=== PATIENT | female | born 1985 | race Caucasian/White ===

== ENCOUNTER 2024-06-14 12:53 | Outpatient (AMB) | payer MEDICAID, SELFPAY ==
[2024-06-14 13:01] VITALS: BP 116/62; PULSE 107; BMI 27.7
--- NOTE | 2024-06-14 13:01 | MHC.OFFVIS ---
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 It seems she has been referred from [facility] but we do not have any notes or any other information. No documented cardiac issues like coronary disease per patient. She has been getting some chest pains off and on. Can happen any time. Feels like a sharp pain/discomfort in the substernal area. She also gets some shortness of breath, off and on. Can happen any time. Lots of psychiatric issues including depression, PTSD extra. On a lot of psychiatric medications. [facility] Medical History (Updated 06/14/24 @ 14:10 by Fredrick John MD) Hemochromatosis Major depression Agoraphobia PTSD (post-traumatic stress disorder) TMJ (dislocation of temporomandibular joint) Acute anxiety Asthma Family History Mother No problems noted. Father No problems noted. Social History Alcohol intake: never Patient Tobacco Use Status: Former Tobacco user Review of Systems Const Denies weakness ENT Denies dizziness Card Reports chest pain, Denies chest pain with activity, Denies syncope, Denies rapid heart rate, Denies pedal edema, Denies edema, Denies leg edema, Denies lightheadedness, Reports palpitations, Reports dyspnea, Denies dyspnea on exertion and Denies orthopnea Resp Denies cough, Reports dyspnea and Denies dyspnea on exertion GI Denies hematochezia and Denies change in stool character Musc Denies abnormal gait, Denies muscle cramps, Denies muscle weakness, Denies numbness, Denies radiating pain into limb and Denies tingling Neuro Denies abnormal gait, Denies dizziness, Denies syncope, Denies numbness, Denies tingling and Denies weakness Endo Reports palpitations Physical Exam Vital Signs: Last Vital Signs Pulse 107 H 06/14/24 13:01 BP 116/62 06/14/24 13:01 BMI result Body Mass Index 27.7 Const General: comfortable and no acute distress Orientation/consciousness: patient oriented x3 HEENT Other: Unremarkable Head: Yes normal to inspection Neck Neck: Yes normal visual inspection Chest Chest palpation & inspection: normal inspection of the chest Resp Auscultation: clear to auscultation bilaterally Cardio Palpation: normal PMI Heart sounds: S1 normal heart sound present, S2 normal heart sound present, no gallops, no murmurs and no rubs GI Palpation (GI): Soft to palpation Back/Spine/Pelvis Other: unremarkable Skin General skin exam: no rashes or lesions noted Neuro General: patient oriented x3 Extrem General: Yes normal to inspection Psych Mental Status: mental status grossly normal Office Procedures EKG Details: EKG with mild sinus tachycardia at 107/Min; rightward axis; no significant ST-T changes; [place] [id number], Complete Assessment & Plan Assessment & Plan (1) Precordial chest pain: Code(s): R07.2 - Precordial pain Category: Medical (2) Shortness of breath: Code(s): R06.02 - Shortness of breath Category: Medical Plan Vague history of chest pain/shortness of breath but not very typical for cardiac. Considering her psychiatric history, would prefer to still clarify with certainty for any organic etiology. We will obtain an echocardiogram and coronary CTA for further evaluation. Follow-up after the above. Orders: Orders CA echo transthoracic complete Today R07.2 - Precordial pain CT Cardiac Coronary Angio Today I25.10 - Atherosclerotic heart disease of [place] coronary artery without angina pectoris, R07.2 - Precordial pain Basic Metabolic Panel Today R07.2 - Precordial pain Coding Level of Care Code New Pt Level 3 (60600) Diagnoses Precordial chest pain R07.2 Shortness of breath R06.02 CPT Codes EKG - CPT: 58996-[id number], Complete ([id number])
--- OUTSIDE RECORDS SUMMARY | 2024-06-20 02:13 | XMS_ITS | Continuity of Care Document ---
Author Organization [facility] Address [address] [place] [address] Phone Care Team Providers Care Chief Specialist Leed Name Role Phone ZProvider, Conversion Unavailable Unavailabl e Procedures Procedure Date X-RAY EXAM OF FOOT X-RAY EXAM OF HAND X-Ray Exam Sacroiliac Joints Advance Directives Directive Yes / No Effective Date File Name No Information Encounters Encounter Description Practice Location Reason(s) For Visit Diagnoses Date Provider Providers Copied on Encounter [facility], [address], [place], [place], [id number], tel:[phone] [facility] No Information ZProvider Conversion . . [facility], [address], [place], [place], [id number], tel:[phone] [facility] Spondylosis w/o myelopathy or radiculopathy, lumbar regionOther specified arthritis, multiple sitesTachycardia, unspecifiedDecrease d white blood cell count, unspecified ZProvider Conversion . . [facility], [address], [place], [place], [id number], tel:[phone] [facility] Anxiety disorder, unspecifiedPain in right hipOther specified arthritis, multiple sitesPain in left hipSpondylosis w/o myelopathy or radiculopathy, lumbar regionLong term (current) use of non-steroidal non-inflam (NSAID) ZProvider Conversion . . Family History Family Member Type Diagnosis Age At Onset Problem (finding) The patient re ports no changes except otherwise noted during the present visit Problem (finding) Diabetes Mellitus Type I Payers Payer name Insurance type Covered alliance party ID Abhishek preston(s) No Information Social History [...] No Information Instructions Date Instruction Additional Infor matshivani Reported lumbar DJD on Xray and MRI. Not currently followed by pain management. Will refer. Related to Spondylosis w/o myelopathy or radiculopathy, lumbar region Heart rate was 116 a nd was [...] Spondylosis w/o myelopathy or radiculopathy, lumbar region Will refer to hematology. Relate d to Decreased white blood cell count, unspecified Noted to be anxious on examination with heart rate 104. Patient reports situational anxiety. Advise follow up with PCP as needed. Related to Anxiety disorder, unspecified Will evaluate as above. Related to Pain in right hip Clinical evaluation does not support a rheumatic [...] in future if symptoms and signs change of address clerk time. Her white blood count and ANC are low. Will refer to Hematology for further evaluation. Patient was advised to bring a copy of her labs to her visit.Patient verbalized understanding and agreement with the plan. A copy of this report has been sent to the referring provider. Related to Other specified arthritis, multiple sites 31-year-old female w ith reported history of [...] Related to Other specified arthritis, multiple sites Advised minimizing NSAID use. 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
--- OUTSIDE RECORDS SUMMARY | 2024-06-20 02:13 | XMS_ITS | Continuity of Care Document ---
Author Organization [facility] Address [address] [place] [address] Phone Care Team Providers Care Real Estate Instructor Name Role Phone Gabino BHT CPSS, Jamey Unavailable Unavailabl e Allergies, Adverse Reactions, Alerts Substance Reaction Status Criticality No Known Allergies Active No Inform ation Medications Medication Instructions Dosage Effective Dates (start - stop) Status Comments lorazepam 1 mg tablet take 1 tablet by oral route 2 times every day - No Longer Active Strattera 100 mg capsule take 1 capsule by oral route every day in morning with food - No Longer Active Cymbalta 30 mg capsule,delayed release take 3 capsule by oral route every day with food andif drowsy take at bedtime - No Longer Active taper from 60 to 30mg Procedures Procedure Date 75 - CASE MGMT BY BHP IN OFFICE 017 URINE TEST Drug Screening 75 - CASE MGMT BY BHP IN OFFICE 017 BH EST PT 15 MIN 75 - CASE MGMT BY BHT IN OFFICE 017 75 - CASE MGMT BY BHP IN OFFICE 017 75 - CASE MGMT BY BHP IN OFFICE 017 H34H - Medication Training Home 017 INDIVIDUAL COUNSELING - IN HOME 017 75 - CASE MGMT BY BHP IN OFFICE 017 75 - CASE MGMT BY BHP IN OFFICE 017 75 - CASE MGMT BY BHP IN OFFICE 017 75 - CASE MGMT BY BHP IN OFFICE 017 75 - CASE MGMT BY BHP IN OFFICE 017 T1002 - RN SERVICES 75 - CASE MGMT BY BHP IN OFFICE 75 - CASE MGMT BY BHP IN OFFICE 75 - CASE MGMT BY BHT IN OFFICE 75 - CASE MGMT BY BHT IN OFFICE 75 - CASE MGMT BY BHT IN OFFICE 75 - CASE MGMT BY BHT IN OFFICE 75 - CASE MGMT BY BHT IN OFFICE 75 - CASE MGMT BY BHP IN OFFICE 75 - CASE MGMT BY BHP IN OFFICE 75 - CASE MGMT BY BHT IN OFFICE 017 BH EST PT 15 MIN 75 - CASE MGMT BY BHP IN OFFICE 017 75 - CASE MGMT BY BHP IN OFFICE 75 - CASE MGMT BY BHT IN OFFICE 017 T1002 - RN SERVICES 08 - INDIVIDUAL COUNSELING OFF SITE 75 - CASE MGMT BY BHP IN OFFICE 017 75 - CASE MGMT BY BHP IN OFFICE 75 - CASE MGMT BY BHT IN OFFICE 017 2014H - LIVING SKILLS TRAINING IND IN [facility] 74 - CASE MGMT BY BHT IN HOME 7 74 - CASE MGMT BY BHT IN HOME 7 74 - CASE MGMT BY BHT IN HOME 7 HPIH - HEALTH PROMTION HOME H34H - Medication Training [place] 017 75 - CASE MGMT BY BHP IN OFFICE 75 - CASE MGMT BY BHP IN OFFICE 75 - CASE MGMT BY BHP IN OFFICE 017 T1002 - RN SERVICES 75 - CASE MGMT BY BHP IN OFFICE 017 75 - CASE MGMT BY BHT IN OFFICE 017 75 - CASE MGMT BY BHT IN OFFICE 75 - CASE MGMT BY BHT IN OFFICE 017 74 - CASE MGMT BY BHT IN HOME 7 H34H - Medication Training Home 017 74 - CASE MGMT BY BHT IN HOME 7 75 - CASE MGMT BY BHT IN OFFICE 017 2014I - LIVING SKILLS TRAINING 17 75 - CASE MGMT BY BHT IN OFFICE 017 URINE TEST Drug Screening BH EST PT 40 MIN T1002 - RN SERVICES 75 - CASE MGMT BY BHT IN OFFICE 017 75 - CASE MGMT BY BHT IN OFFICE 017 75 - CASE MGMT BY BHP IN OFFICE Non-billable Service 75 - CASE MGMT BY BHT IN OFFICE 75 - CASE MGMT BY BHT IN OFFICE 75 - CASE MGMT BY BHT IN OFFICE 75 - CASE MGMT BY BHT IN OFFICE 75 - CASE MGMT BY BHT IN OFFICE 75 - CASE MGMT BY BHT IN OFFICE 75 - CASE MGMT BY BHT IN OFFICE 75 - CASE MGMT BY BHT IN OFFICE 75 - CASE MGMT BY BHT IN OFFICE 75 - CASE MGMT BY BHP IN OFFICE 017 75 - CASE MGMT BY BHP IN OFFICE 75 - CASE MGMT BY BHT IN OFFICE 75 - CASE MGMT BY BHT IN OFFICE Non-billable Service 75 - CASE MGMT BY BHP IN OFFICE 017 25 - BH PREVENTION/EDUCATION 75 - CASE MGMT BY BHT IN OFFICE 017 URINE TEST Drug Screening T1002 - RN SERVICES 25 - BH PREVENTION/EDUCATION Psychiatric Diagnostic Telemed 17 76 - CASE MGMT OUT OF OFFICE BHP 2016 75 - CASE MGMT BY BHT IN OFFICE 017 76 - CASE MGMT OUT OF OFFICE BHP 2016 75 - CASE MGMT BY BHT IN OFFICE 75 - CASE MGMT BY BHP IN OFFICE 75 - CASE MGMT BY BHP IN OFFICE Apr- Non-billable Service 75 - CASE MGMT BY BHP IN OFFICE Apr- 75 - CASE MGMT BY BHT IN OFFICE Apr- 75 - CASE MGMT BY BHP IN OFFICE Apr- 75 - CASE MGMT BY BHP IN OFFICE Apr- 75 - CASE MGMT BY BHT IN OFFICE Apr- 75 - CASE MGMT BY BHP IN OFFICE Apr- 75 - CASE MGMT BY BHT IN OFFICE Apr- 75 - CASE MGMT BY BHT IN OFFICE Apr- 75 - CASE MGMT BY BHT IN OFFICE 75 - CASE MGMT BY BHP IN OFFICE Apr- 76 - CASE MGMT BY BHT OUT OF OFFICE 75 - CASE MGMT BY BHP IN OFFICE Apr- 75 - CASE MGMT BY BHP IN OFFICE 75 - CASE MGMT BY BHP IN OFFICE Apr- 08 - INDIVIDUAL COUNSELING OFF SITE 75 - CASE MGMT BY BHP IN OFFICE 75 - CASE MGMT BY BHP IN OFFICE 75 - CASE MGMT BY BHP IN OFFICE URINE TEST Drug Screening 75 - CASE MGMT BY BHP IN OFFICE BH EST PT 15 MIN 2014I - LIVING SKILLS TRAINING 17 75 - CASE MGMT BY BHT IN OFFICE 75 - CASE MGMT BY BHT IN OFFICE 75 - CASE MGMT BY BHT IN OFFICE 75 - CASE MGMT BY BHP IN OFFICE BH EST PT 15 MIN 75 - CASE MGMT BY BHP IN OFFICE URINE TEST Drug Screening 75 - CASE MGMT BY BHT IN OFFICE 75 - CASE MGMT BY BHT IN OFFICE 75 - CASE MGMT BY BHT IN OFFICE 75 - CASE MGMT BY BHT IN OFFICE 75 - CASE MGMT BY BHT IN OFFICE 75 - CASE MGMT BY BHT IN OFFICE 75 - CASE MGMT BY BHT IN OFFICE 74 - CASE MGMT BY BHT IN HOME 7 75 - CASE MGMT BY BHT IN OFFICE 75 - CASE MGMT BY BHT IN OFFICE 75 - CASE MGMT BY BHT IN OFFICE 75 - CASE MGMT BY BHT IN OFFICE 75 - CASE MGMT BY BHT IN OFFICE 75 - CASE MGMT BY BHT IN OFFICE 75 - CASE MGMT BY BHT IN OFFICE 75 - CASE MGMT BY BHT IN OFFICE 75 - CASE MGMT BY BHT IN OFFICE [facility] SU[facility] IND [place] 75 - CASE MGMT BY BHT IN OFFICE 017 75 - CASE MGMT BY BHT IN OFFICE 75 - CASE MGMT BY BHT IN OFFICE 75 - CASE MGMT BY BHT IN OFFICE BH EST PT10 MIN 75 - CASE MGMT BY BHT IN OFFICE 75 - CASE MGMT BY BHT IN OFFICE 75 - CASE MGMT BY BHT IN OFFICE 75 - CASE MGMT BY BHT IN OFFICE 75 - CASE MGMT BY BHT IN OFFICE 75 - CASE MGMT BY BHT IN OFFICE 75 - CASE MGMT BY BHT IN OFFICE 75 - CASE MGMT BY BHT IN OFFICE 75 - CASE MGMT BY BHT IN OFFICE 017 75 - CASE MGMT BY BHT IN OFFICE 017 75 - CASE MGMT BY BHT IN OFFICE 017 [facility] - LIVING SKILLS TRAINING IND IN [facility] 74 - CASE MGMT BY BHT IN HOME 7 75 - CASE MGMT BY BHT IN OFFICE 017 05- INDIVIDUAL COUNSELING- OFFICE 75 - CASE MGMT BY BHP IN OFFICE 017 75 - CASE MGMT BY BHT IN OFFICE 017 74 - CASE MGMT BY BHT IN HOME 7 2013H - LIVING SKILLS TRAINING IND IN [facility] LODGING FACILITIES ATTENDANT UNIT BASE RATE LODGING FACILITIES ATTENDANT Per Mile Rate 74 - CASE MGMT BY BHT IN HOME 7 LODGING FACILITIES ATTENDANT UNIT BASE RATE LODGING FACILITIES ATTENDANT Per Mile Rate 2013H - LIVING SKILLS TRAINING IND IN [facility] 74 - CASE MGMT BY BHT IN HOME 7 74 - CASE MGMT BY BHT IN HOME 7 75 - CASE MGMT BY BHT IN OFFICE 017 25 - BH PREVENTION/EDUCATION BH EST PT 15 MIN 75 - CASE MGMT BY BHT IN OFFICE 017 URINE TEST Drug Screening 74 - CASE MGMT BY BHT IN HOME 7 75 - CASE MGMT BY BHT IN OFFICE 017 75 - CASE MGMT BY BHT IN OFFICE 017 INDIVIDUAL COUNSELING - IN HOME 017 74 - CASE MGMT BY BHT IN HOME 7 75 - CASE MGMT BY BHT IN OFFICE 017 75 - CASE MGMT BY BHT IN OFFICE 017 75 - CASE MGMT BY BHT IN OFFICE 017 T1002 - RN SERVICES 25 - BH PREVENTION/EDUCATION URINE TEST Drug Screening BH EST PT 15 MIN INDIVIDUAL COUNSELING - IN HOME 017 74 - CASE MGMT BY BHT IN HOME 7 74 - CASE MGMT BY BHT IN HOME 7 74 - CASE MGMT BY BHT IN HOME 7 INDIVIDUAL COUNSELING - IN HOME 017 74 - CASE MGMT BY BHT IN HOME 7 74 - CASE MGMT BY BHT IN HOME 7 2013H - LIVING SKILLS TRAINING IND IN [facility] 75 - CASE MGMT BY BHT IN OFFICE INDIVIDUAL COUNSELING - IN HOME 74 - CASE MGMT BY BHT IN HOME 7 INDIVIDUAL COUNSELING - IN HOME 017 74 - CASE MGMT BY BHT IN HOME 7 2013H - LIVING SKILLS TRAINING IND IN [facility] 75 - CASE MGMT BY BHT IN OFFICE 017 INDIVIDUAL COUNSELING - IN HOME 017 74 - CASE MGMT BY BHT IN HOME 7 75 - CASE MGMT BY BHT IN OFFICE 017 74 - CASE MGMT BY BHT IN HOME 7 INDIVIDUAL COUNSELING - IN HOME 74 - CASE MGMT BY BHT IN HOME 7 URINE TEST Drug Screening ASSAY OF BREATH ETHANOL BH EST PT 25 MIN 75 - CASE MGMT BY BHT IN OFFICE 017 T1002 - RN SERVICES 25 - BH PREVENTION/EDUCATION 75 - CASE MGMT BY BHP IN OFFICE 017 74 - CASE MGMT BY BHT IN HOME 7 - LIVING SKILLS TRAINING IND IN [facility] 76 - CASE MGMT BY BHT OUT OF OFFICE INDIVIDUAL COUNSELING - IN HOME 017 74 - CASE MGMT BY BHT IN HOME 7 75 - CASE MGMT BY BHT IN OFFICE 017 INDIVIDUAL COUNSELING - IN HOME 017 74 - CASE MGMT BY BHT IN HOME 7 74 - CASE MGMT BY BHT IN HOME 7 [facility] IND HOME INDIVIDUAL COUNSELING - IN HOME 017 74 - CASE MGMT BY BHT IN HOME 7 75 - CASE MGMT BY BHT IN OFFICE 017 75 - CASE MGMT BY BHT IN OFFICE 017 75 - CASE MGMT BY BHT IN OFFICE 017 75 - CASE MGMT BY BHT IN OFFICE 017 INDIVIDUAL COUNSELING - IN HOME 017 75 - CASE MGMT BY BHT IN OFFICE 017 74 - CASE MGMT BY BHT IN HOME 7 INDIVIDUAL COUNSELING - IN HOME 017 74 - CASE MGMT BY BHT IN HOME 7 2014H - LIVING SKILLS TRAINING IND IN [place] 75 - CASE MGMT BY BHT IN OFFICE 017 74 - CASE MGMT BY BHT IN HOME 7 PSI[facility] - PEER SUPPORT IND HOME 25 - BH PREVENTION/EDUCATION BH EST PT 25 MIN Drug Screening T1002 - RN SERVICES INDIVIDUAL COUNSELING - IN HOME 017 75 - CASE MGMT BY BHP IN OFFICE 017 75 - CASE MGMT BY BHP IN OFFICE 017 75 - CASE MGMT BY BHP IN OFFICE 017 75 - CASE MGMT BY BHP IN OFFICE 017 75 - CASE MGMT BY BHP IN OFFICE 017 BH EST PT10 MIN PSYCHOTHERAPY 30 MIN ADD-ON T1002 - RN SERVICES 25 - BH PREVENTION/EDUCATION 25 - BH PREVENTION/EDUCATION BH EST PT 25 MIN URINE TEST Drug Screening T1002 - RN SERVICES 25 - BH PREVENTION/EDUCATION 75 - CASE MGMT BY BHT IN OFFICE 016 BH EST PT 25 MIN 25 - BH PREVENTION/EDUCATION T1002 - RN SERVICES Est. Pt 25 Min Telemed 75 - CASE MGMT BY BHT IN OFFICE 016 T1002 - RN SERVICES 2013H - LIVING SKILLS TRAINING IND IN [place] INDIVIDUAL COUNSELING - IN HOME 016 PSIH - PEER SUPPORT IND HOME PSIH - PEER SUPPORT IND HOME INDIVIDUAL COUNSELING - IN HOME 016 75 - CASE MGMT BY BHT IN OFFICE 016 75 - CASE MGMT BY BHT IN OFFICE 016 BH EST PT 25 MIN T1002 - RN SERVICES URINE TEST Drug Screening T1002 - RN SERVICES 75 - CASE MGMT BY BHT IN OFFICE 016 75 - CASE MGMT BY BHT IN OFFICE 016 75 - CASE MGMT BY BHT IN OFFICE 016 H34H - Medication Training Home 016 PSIH - PEER SUPPORT IND HOME 74 - CASE MGMT BY BHT IN HOME 6 BH EST PT 40 MIN T1002 - RN SERVICES 25 - BH PREVENTION/EDUCATION URINE TEST Drug Screening 75 - CASE MGMT BY BHP IN OFFICE 016 75 - CASE MGMT BY BHT IN OFFICE 016 H34H - Medication Training Home 016 75 - CASE MGMT BY BHP IN OFFICE 016 H34H - Medication Training Home 016 LODGING FACILITIES ATTENDANT UNIT BASE RATE LODGING FACILITIES ATTENDANT Per Mile Rate 75 - CASE MGMT BY BHT IN OFFICE 016 2014H - LIVING SKILLS TRAINING IND IN [facility] 75 - CASE MGMT BY BHT IN OFFICE 016 75 - CASE MGMT BY BHT IN OFFICE 016 OFFICE/OUTPATIENT VISIT, EST LODGING FACILITIES ATTENDANT UNIT BASE RATE LODGING FACILITIES ATTENDANT Per Mile Rate 75 - CASE MGMT BY BHT IN OFFICE 016 2014H - LIVING SKILLS TRAINING IND IN [facility] T1002 - RN SERVICES 25 - BH PREVENTION/EDUCATION Drug Screening PSYCHIATRIC DX EVALATION W/ MED SRV 25 - BH PREVENTION/EDUCATION T1002 - RN SERVICES LODGING FACILITIES ATTENDANT UNIT BASE RATE LODGING FACILITIES ATTENDANT Per Mile Rate 75 - CASE MGMT BY BHT IN OFFICE 016 INDIVIDUAL COUNSELING - IN HOME 016 04 - EVALUATION/DIAGNOSIS OFFICE/OUTPATIENT VISIT, EST 75 - CASE MGMT BY BHP IN OFFICE 016 OFFICE/OUTPATIENT VISIT, NEW INDS - PEER SUPPORT OFFICE 75 - CASE MGMT BY BHT IN OFFICE 016 75 - CASE MGMT BY BHT IN OFFICE 016 ASSAY OF BREATH ETHANOL 75 - CASE MGMT BY BHT IN OFFICE 016 75 - CASE MGMT BY BHT IN OFFICE 016 75 - CASE MGMT BY BHT IN OFFICE 03 - BEHAVIORAL HEALTH SCREENING 2015 T1002 - RN SERVICES 05 - INDIVIDUAL COUNSELING - OFFICE T1002 - RN SERVICES LODGING FACILITIES ATTENDANT UNIT BASE RATE LODGING FACILITIES ATTENDANT Per Mile Rate URINE TEST T1002 - RN SERVICES Advance Directives Directive Yes / No Effective Date File Name No Information Encounters Encounter Description Practice Location Reason(s) For Visit Diagnoses Date Provider Providers Copied on Encounter [employer], [address], [id number], tel:[phone] [place] No Information 7 Gabino [facility] MARIELENA Concepcion. [address] [place] [address], [id number], [place]. tel:[phone] [employer], [address] [place] [address], [id number], [place] tel:[phone] [place] Major depressv disorder, recurrent severe w/o psych features 7 No Information [facility] [employer] [facility] [employer], [address] [place] [address], [id number], tel:[phone] [place] Major depressv disorder, recurrent severe w/o psych features 7 Balbir [facility] Radha. [address], [place], [place], [id number], [place]. tel:[phone] [employer], [address], [place], [place], [id number], [place] tel:[phone] [place] Major depressv disorder, recurrent severe w/o psych features 7 No Information [facility] [employer] [facility] [employer], [address], [place], [place], [id number], [place] tel:[phone] [place] Major depressv disorder, recurrent severe w/o psych features 7 No Information [facility] [employer], [address], [place], [place], [id number], [place] tel:[phone] [place] Major depressv disorder, recurrent severe w/o psych features 7 No Information [facility] [employer] [facility] [employer], [address], [place], [place], [id number], [place] tel:[phone] [place] Major depressv disorder, recurrent severe w/o psych features 7 No Information [facility] [employer] [facility] [employer], [address], [place], [place], [id number], [place] tel:[phone] [place] Major depressv disorder, recurrent severe w/o psych features 7 No Information [facility] [employer] [facility] [employer], [address], [place], [place], [id number], [place] tel:[phone] [place] Major depressv disorder, recurrent severe w/o psych features 7 [facility] Gurwinder. [address], [place], [place], [id number], [place]. tel:[phone] [facility], [address], [place], [place], [id number], [place] tel:[phone] [place] Major depressv disorder, recurrent severe w/o psych features Jun-- 7 No Information [facility], [address], [place], [place], [id number], [place] tel:[phone] [place] Major depressv disorder, recurrent severe w/o psych features Dec-0 7- 7 No Information [facility] [employer], [address], [place], [place], [id number], [place] tel:[phone] [place] Major depressv disorder, recurrent severe w/o psych features Dec-0 7 7 No Information [facility], [address], [place], [place], [id number], [place] tel:[phone] [place] Major depressv disorder, recurrent severe w/o psych features Dec-0 7 7 No Information [facility], [address], [place], [place], [id number], [place] tel:[phone] [place] Major depressv disorder, recurrent severe w/o psych features Dec-0 7 No Information [facility], [address], [place], [place], [id number], [place] tel:[phone] [place] Major depressv disorder, recurrent severe w/o psych features Dec-0 7 7 No Information [facility], [address], [place], [place], [id number], [place] tel:[phone] [place] Major depressv disorder, recurrent severe w/o psych features Dec-0 6 7 No Information [facility], [address], [place], [place], [id number], [place] tel:[phone] [place] Major depressv disorder, recurrent severe w/o psych features Dec-0 6 7 No Information [facility], [address], [place], [place], [id number], [place] tel:[phone] [place] Major depressv disorder, recurrent severe w/o psych features Dec-0 6 7 No Information [facility] [facility] [employer], [address], [place], [place], [id number], [place] tel:[phone] [place] Major depressv disorder, recurrent severe w/o psych features Dec-0 5 7 Jorge L Saxena. [address], [place], [place], [id number], [place]. tel:[phone] [facility], [address], [place], [place], [id number], [place] tel:[phone] [place] Major depressv disorder, recurrent severe w/o psych features 7 Jorge L [facility] [place]. [address], [place], [place], [id number], [place]. tel:[phone] [facility] [employer], [address], [place], [place], [id number], [place] tel:[phone] [place] Major depressv disorder, recurrent severe w/o psych features 7 No Information [facility] [facility], [address], [place], [place], [id number], [place] tel:[phone] [place] Major depressv disorder, recurrent severe w/o psych features 7 No Information [facility], [address], [place], [place], [id number], [place] tel:[phone] [place] Major depressv disorder, recurrent severe w/o psych features 7 No Information [facility] [employer] [facility] [employer], [address], [place], [place], [id number], [place] tel:[phone] [place] Major depressv disorder, recurrent severe w/o psych features 7 [place] [facility] GIIlsa Lowe. [address] [facility], [place], [place], [id number], [place]. tel:[phone] [facility] [employer], [address], [place], [place], [id number], [place] tel:[phone] [place] Major depressv disorder, recurrent severe w/o psych features 7 No Information [facility] [employer] [facility] [employer], [address], [place], [place], [id number], [place] tel:[phone] [place] Major depressv disorder, recurrent severe w/o psych features 7 No Information [facility], [address], [place], [place], [id number], [place] tel:[phone] [place] Major depressv disorder, recurrent severe w/o psych features 7 No Information [facility], [address], [place], [place], [id number], [place] tel:[phone] [place] Major depressv disorder, recurrent severe w/o psych features 7 No Information [facility], [address], [place], [place], [id number], [place] tel:[phone] [place] Major depressv disorder, recurrent severe w/o psych features 7 No Information [facility] [employer], [address], [place], [place], [id number], [place] tel:[phone] [place] Major depressv disorder, recurrent severe w/o psych features 7 No Information [facility] [employer], [address], [place], [place], [id number], [place] tel:[phone] [place] Major depressv disorder, recurrent severe w/o psych features 7 No Information [facility] [employer] [facility] [employer], [address], [place], [place], [id number], [place] tel:[phone] [place] Major depressv disorder, recurrent severe w/o psych features No Information [facility], [address], [place], [place], [id number], [place] tel:[phone] [place] Major depressv disorder, recurrent severe w/o psych features No Information [facility] [employer] [facility], [address], [place], [place], [id number], [place] tel:[phone] [place] Major depressv disorder, recurrent severe w/o psych features 7 Copolillo [facility] Christopher. [address], [place], [place], [id number], [place]. tel:[phone] [employer], [address], [place], [place], [id number], [place] tel:[phone] [place] Major depressv disorder, recurrent severe w/o psych features 7 Copolillo [facility] Christopher. [address], [place], [place], [id number], [place]. tel:[phone] [facility], [address], [place], [place], [id number], [place] tel:[phone] [place] Major depressv disorder, recurrent severe w/o psych features 7 [facility]. [address] [place] [address], [place], [place], [id number], [place]. tel:[phone] [employer], [address], [place], [place], [id number], [place] tel:[phone] [place] Major depressv disorder, recurrent severe w/o psych features [facility]. [address] [place] [address], [place], [place], [id number], [place]. tel:[phone] [employer], [address], [place], [place], [id number], [place] tel:[phone] [place] Major depressv disorder, recurrent severe w/o psych features [facility] [place]. [address] [place] [address], [place], [place], [id number], [place]. tel:[phone] [employer], [address], [place], [place], [address], [place] tel:[phone] [place] Major depressv disorder, recurrent severe w/o psych features Jorge L T [place]. [address] [facility], [place], [place], [id number], [place]. tel:[phone] [facility], [address], [place], [place], [id number], [place] tel:[phone] [place] Major depressv disorder, recurrent severe w/o psych features 7 No Information [employer], [address], [place], [place], [id number], [place] tel:[phone] [place] Major depressv disorder, recurrent severe w/o psych features No Information [facility] [employer], [address], [place], [place], [id number], [place] tel:[phone] [place] Major depressv disorder, recurrent severe w/o psych features 7 No Information [facility] [employer], [address], [place], [place], [id number], [place] tel:[phone] [place] Major depressv disorder, recurrent severe w/o psych features No Information [facility] [employer] [facility] [employer], [address], [place], [place], [id number], [place] tel:[phone] [place] Major depressv disorder, recurrent severe w/o psych features No Information [facility] [employer] [facility] [employer], [address], [place], [place], [id number], [place] tel:[phone] [place] Major depressv disorder, recurrent severe w/o psych features 7 Copolillo [facility] Christopher. [address] [facility], [place], [place], [id number], [place]. tel:[phone] [employer], [address], [place], [place], [id number], [place] tel:[phone] [place] Major depressv disorder, recurrent severe w/o psych features 7 Copolillo [facility] [place]. [address] [facility], [place], [place], [id number], [place]. tel:[phone] [employer], [address], [place], [place], [id number], [place] tel:[phone] [place] Major depressv disorder, recurrent severe w/o psych features 7 Copolillo [facility] [place]. [address] [facility], [place], [place], [id number], [place]. tel:[phone] [facility] [employer], [address], [place], [place], [id number], [place] tel:[phone] [place] Major depressv disorder, recurrent severe w/o psych features 7 [facility] Fareedopher. [address], [place], [place], [id number], [place]. [phone] [facility], [address], [place], [place], [id number], [place] tel:[phone] [place] Major depressv disorder, recurrent severe w/o psych features Gabino [facility] Jamey. [address], [place], [place], [id number], [place]. [phone] [facility], [address], [place], [place], [id number], [place] tel:[phone] [place] Major depressv disorder, recurrent severe w/o psych features Jorge L [facility] [place]. [address] [place] [address], [place], [place], [address], [place]. tel:[phone] [employer], [address], [place], [place], [address], [place] tel:[phone] ACT Major depressv disorder, recurrent severe w/o psych features 7 No Information [employer], [address], [place], [place], [address], [place] tel:[phone] ACT Major depressv disorder, recurrent severe w/o psych features Gabino [facility] Jamey. [address] [place] [address], [place], [place], [address], [place]. tel:[phone] [employer], [address], [place], [place], [address], [place] tel:[phone] ACT Major depressv disorder, recurrent severe w/o psych features 7 Balbir [facility] Radha. [address] [place] [address], [place], [place], [address], [place]. tel:[phone] [employer], [address], [place], [place], [address], [place] tel:[phone] ACT Unspecified anxiety disorderMajor depressv disorder, recurrent severe w/o psych features No Information [employer], [address], [place], [place], [address], [place] tel:[phone] ACT Major depressv disorder, recurrent severe w/o psych features 7 No Information [employer], [address], [place], [place], [address], [place] tel:[phone] ACT Major depressv disorder, recurrent severe w/o psych features 7 No Information [employer], [address], [place], [place], [address], [place] tel:[phone] ACT Major depressv disorder, recurrent severe w/o psych features No Information [employer], [address], [place], [place], [address], [place] tel:[phone] ACT Major depressv disorder, recurrent severe w/o psych features Rickey Peres. [address] [place] [address], [place], [place], [address], [place]. tel:[phone] [employer], [address], [place], [place], [address], [place] tel:[phone] ACT Major depressv disorder, recurrent severe w/o psych features No Information [employer], [address], [place], [place], [address], [place] tel:[phone] ACT Major depressv disorder, recurrent severe w/o psych features Gabino Concepcion. [address] [place] [address], [place], [place], [address], [place]. tel:[phone] [employer], [address], [place], [place], [address], [place] tel:[phone] ACT Major depressv disorder, recurrent severe w/o psych features Jorge L [facility] [place]. [address], [place], [place], [address], [place]. tel:[phone] [employer], [address], [place], [place], [address], [place] tel:[phone] ACT Major depressv disorder, recurrent severe w/o psych features 7 Copolillo [facility] Christopher. [address] [facility], [place], [place], [address], [place]. tel:[phone] [employer], [address], [place], [place], [address], [place] tel:[phone] ACT Major depressv disorder, recurrent severe w/o psych features 7 Copolillo [facility] Christopher. [address] [facility], [place], [place], [address], [place]. tel:[phone] [employer], [address], [place], [place], [address], [place] tel:[phone] ACT Major depressv disorder, recurrent severe w/o psych features 7 Copolillo [facility] Christopher. [address] [facility], [place], [place], [address], [place]. tel:[phone] [employer], [address], [place], [place], [address], [place] tel:[phone] ACT Major depressv disorder, recurrent severe w/o psych features 7 Copolillo [facility] B[facility] Christopher. [address] [facility], [place], [place], [address], [place]. tel:[phone] [employer], [address], [place], [place], [address], [place] tel:[phone] ACT Major depressv disorder, recurrent severe w/o psych features 7 Copolillo [facility] B[facility] Christopher. [address] [facility], [place], [place], [address], [place]. tel:[phone] [employer], [address], [place], [place], [address], [place] tel:[phone] ACT Major depressv disorder, recurrent severe w/o psych features 7 Ozzie CALDERON Melva Ramirez. [address], [place], [place], [address], [place]. tel:[phone] [employer], [address], [place], [place], [address], [place] tel:[phone] ACT Major depressv disorder, recurrent severe w/o psych features 0 7 No Information [employer], [address], [place], [place], [address], [place] tel:[phone] ACT Major depressv disorder, recurrent severe w/o psych features 0 7 No Information [employer], [address], [place], [place], [address], [place] tel:[phone] ACT Major depressv disorder, recurrent severe w/o psych features 0 7 No Information [employer], [address], [place], [place], [address], [place] tel:[phone] ACT Major depressv disorder, recurrent severe w/o psych features 0 7 No Information [employer], [address], [place], [place], [address], [place] tel:[phone] ACT Major depressv disorder, recurrent severe w/o psych features 0 7 No Information [employer], [address], [place], [place], [address], [place] tel:[phone] ACT Major depressv disorder, recurrent severe w/o psych features 0 7 Rickey Peres. [address], [place], [place], [address], [place]. tel:[phone] [employer], [address], [place], [place], [address], [place] tel:[phone] ACT Major depressv disorder, recurrent severe w/o psych features 7 Philip-Canhle y [employer]CHNIC[employer] Jesica. [address], [place], [place], [address], [place]. tel:[phone] [employer], [address], [place], [place], [address], [place] tel:[phone] ACT Major depressv disorder, recurrent severe w/o psych features 7 Philip-Canhle y [employer] TECHNIC[employer] Jesica. [address], [place], [place], [address], [place]. tel:[phone] [employer], [address], [place], [place], [address], [place] tel:[phone] ACT Major depressv disorder, recurrent severe w/o psych features 7 No Information [employer], [address], [place], [place], [address], [place] tel:[phone] ACT Major depressv disorder, recurrent severe w/o psych features Apr- 7 No Information [employer], [address], [place], [place], [address], [place] tel:[phone] ACT Major depressv disorder, recurrent severe w/o psych features 7 No Information [employer], [address], [place], [place], [address], [place] tel:[phone] ACT Major depressv disorder, recurrent severe w/o psych features Apr- 7 No Information [employer], [address], [place], [place], [address], [place] tel:[phone] ACT Major depressv disorder, recurrent severe w/o psych features 7 No Information [employer], [address], [place], [place], [address], [place] tel:[phone] ACT Major depressv disorder, recurrent severe w/o psych features Apr- 7 No Information [employer], [address], [place], [place], [address], [place] tel:[phone] ACT Major depressv disorder, recurrent severe w/o psych features Jorge L [facility] [place]. [address], [place], [place], [address], [place]. tel:[phone] [employer], [address], [place], [place], [address], [place] tel:[phone] ACT Major depressv disorder, recurrent severe w/o psych features Apr- 7 No Information [employer], [address], [place], [place], [address], [place] tel:[phone] ACT Major depressv disorder, recurrent severe w/o psych features Jorge L Sandra Saxena. [address], [place], [place], [address], [place]. tel:[phone] [employer], [address], [place], [place], [address], [place] tel:[phone] ACT Major depressv disorder, recurrent severe w/o psych features Jorge L [facility] [place]. [address], [place], [place], [address], [place]. tel:[phone] [employer], [address], [place], [place], [address], [place] tel:[phone] ACT Major depressv disorder, recurrent severe w/o psych features Apr- 7 No Information [employer], [address], [place], [place], [address], [place] tel:[phone] ACT Major depressv disorder, recurrent severe w/o psych features Apr- 7 No Information [employer], [address], [place], [place], [address], [place] tel:[phone] ACT Major depressv disorder, recurrent severe w/o psych features Apr- 7 No Information [employer], [address], [place], [place], [address], [place] tel:[phone] ACT Major depressv disorder, recurrent severe w/o psych features 7 No Information [employer], [address], [place], [place], [address], [place] tel:[phone] ACT Major depressv disorder, recurrent severe w/o psych features 7 No Information [employer], [address], [place], [place], [address], [place] tel:[phone] ACT Major depressv disorder, recurrent severe w/o psych features 7 No Information [employer], [address], [place], [place], [address], [place] tel:[phone] ACT Major depressv disorder, recurrent severe w/o psych features 7 No Information [employer], [address], [place], [place], [address], [place] tel:[phone] ACT Major depressv disorder, recurrent severe w/o psych features 7 Balbir Garcia. [address], [place], [place], [address], [place]. tel:[phone] [employer], [address], [place], [place], [address], [place] tel:[phone] ACT Major depressv disorder, recurrent severe w/o psych features 7 No Information [employer], [address], [place], [place], [address], [place] tel:[phone] ACT Major depressv disorder, recurrent severe w/o psych features 7 No Information [employer], [address], [place], [place], [address], [place] tel:[phone] ACT Major depressv disorder, recurrent severe w/o psych features 7 No Information [employer], [address], [place], [place], [address], [place] tel:[phone] ACT Major depressv disorder, recurrent severe w/o psych features 7 No Information [employer], [address], [place], [place], [address], [place] tel:[phone] ACT Major depressv disorder, recurrent severe w/o psych features 7 No Information [employer], [address], [place], [place], [address], [place] tel:[phone] ACT Major depressv disorder, recurrent severe w/o psych features Mar- 7 No Information [employer], [address], [place], [place], [address], [place] tel:[phone] ACT Major depressv disorder, recurrent severe w/o psych features Mar- 7 No Information [employer], [address], [place], [place], [address], [place] tel:[phone] ACT Major depressv disorder, recurrent severe w/o psych features 7 No Information [employer], [address], [place], [place], [address], [place] tel:[phone] ACT Major depressv disorder, recurrent severe w/o psych features 7 Balbir Garcia. [address] [place] [address], [place], [place], [address], [place]. tel:[phone] [employer], [address], [place], [place], [address], [place] tel:[phone] ACT Major depressv disorder, recurrent severe w/o psych features Mar- 7 No Information [employer], [address], [place], [place], [address], [place] tel:[phone] ACT Major depressv disorder, recurrent severe w/o psych features 7 Gabino Concepcion. [address] [place] [address], [place], [place], [address], [place]. tel:[phone] [employer], [address], [place], [place], [address], [place] tel:[phone] ACT Major depressv disorder, recurrent severe w/o psych features 7 No Information [employer], [address], [place], [place], [address], [place] tel:[phone] ACT Major depressv disorder, recurrent severe w/o psych features 7 [facility]. [address] [facility], [place], [place], [address], [place]. tel:[phone] [employer], [address], [place], [place], [address], [place] tel:[phone] ACT Major depressv disorder, recurrent severe w/o psych features 7 No Information [employer], [address], [place], [place], [address], [place] tel:[phone] ACT Major depressv disorder, recurrent severe w/o psych features 7 No Information [employer], [address], [place], [place], [address], [place] tel:[phone] ACT Major depressv disorder, recurrent severe w/o psych features 7 Albrecht [facility] CPSS Jak. [address] [facility], [place], [place], [address], [place]. tel:[phone] [employer], [address], [place], [place], [address], [place] tel:[phone] ACT Major depressv disorder, recurrent severe w/o psych features 7 Albrecht [facility] CPSS Jak. [address] [facility], [place], [place], [address], [place]. tel:[phone] [employer], [address], [place], [place], [address], [place] tel:[phone] ACT Major depressv disorder, recurrent severe w/o psych features 7 Albrecht [facility] CPSS Jak. [address], [address], [place]. tel:[phone] [employer], [address], [place], [place], [address], [place] tel:[phone] ACT Major depressv disorder, recurrent severe w/o psych features 7 Albrecht T [facility] Jak. [address] [facility], [place], [place], [address], [place]. tel:[phone] [employer], [address], [place], [place], [address], [place] tel:[phone] ACT Major depressv disorder, recurrent severe w/o psych features 7 Albrecht T [facility] Jak. [address] [place] [address], [place], [place], [address], [place]. tel:[phone] [employer], [address], [place], [place], [address], [place] tel:[phone] ACT Major depressv disorder, recurrent severe w/o psych features 7 Albrecht T [facility] Jak. [address] [place] [address], [place], [place], [address], [place]. tel:[phone] [employer], [address], [place], [place], [address], [place] tel:[phone] ACT Major depressv disorder, recurrent severe w/o psych features 7 Albrecht T [facility] Jak. [address] [place] [address], [place], [place], [address], [place]. tel:[phone] [employer], [address], [place], [place], [address], [place] tel:[phone] ACT Major depressv disorder, recurrent severe w/o psych features 7 No Information [employer], [address], [place], [place], [address], [place] tel:[phone] ACT Major depressv disorder, recurrent severe w/o psych features 7 No Information [employer], [address], [place], [place], [address], [place] tel:[phone] ACT Major depressv disorder, recurrent severe w/o psych features 7 No Information [employer], [address], [place], [place], [address], [place] tel:[phone] ACT Major depressv disorder, recurrent severe w/o psych features 7 No Information [employer], [address], [place], [place], [address], [place] tel:[phone] ACT Major depressv disorder, recurrent severe w/o psych features 7 No Information [employer], [address], [place], [place], [address], [place] tel:[phone] ACT Major depressv disorder, recurrent severe w/o psych features 7 [facility]. [address] [facility], [place], [place], [address], [place]. tel:[phone] [employer], [address], [place], [place], [address], [place] tel:[phone] ACT Major depressv disorder, recurrent severe w/o psych features 7 [facility]. [address] [facility], [place], [place], [address], [place]. tel:[phone] [employer], [address], [place], [place], [address], [place] tel:[phone] ACT Major depressv disorder, recurrent severe w/o psych features 7 [facility]. [address], [place], [place], [address], [place]. tel:[phone] [employer], [address], [place], [place], [address], [place] tel:[phone] ACT Major depressv disorder, recurrent severe w/o psych features 7 Maritza [facility] Zakia. [address], [place], [place], [address], [place]. tel:[phone] [employer], [address], [place], [place], [address], [place] tel:[phone] ACT Other specified personality disorderMajor depressv disorder, recurrent severe w/o psych features No Information [employer], [address], [place], [place], [address], [place] tel:[phone] ACT Major depressv disorder, recurrent severe w/o psych features 7 No Information [employer], [address], [place], [place], [address], [place] tel:[phone] ACT Major depressv disorder, recurrent severe w/o psych features No Information [employer], [address], [place], [place], [address], [place] tel:[phone] ACT Major depressv disorder, recurrent severe w/o psych features No Information [employer], [address], [place], [place], [address], [place] tel:[phone] ACT Major depressv disorder, recurrent severe w/o psych features No Information [employer], [address], [place], [place], [address], [place] tel:[phone] ACT Major depressv disorder, recurrent severe w/o psych features No Information [employer], [address], [place], [place], [address], [place] tel:[phone] ACT Major depressv disorder, recurrent severe w/o psych features No Information [employer], [address], [place], [place], [address], [place] tel:[phone] ACT Major depressv disorder, recurrent severe w/o psych features [facility] BHT Gurwinder. [address], [place], [place], [address], [place]. tel:[phone] [employer], [address], [place], [place], [address], [place] tel:[phone] ACT Major depressv disorder, recurrent severe w/o psych features 7 Albrecht [facility] CPSS Jak. [address] [facility], [place], [place], [address], [place]. tel:[phone] [employer], [address], [place], [place], [address], [place] tel:[phone] ACT Major depressv disorder, recurrent severe w/o psych features 7 Albrecht [facility] CPSS Jak. [address] [place] [address], [place], [place], [address], [place]. tel:[phone] [employer], [address], [place], [place], [address], [place] tel:[phone] ACT Major depressv disorder, recurrent severe w/o psych features 7 No Information [employer], [address], [place], [place], [address], [place] tel:[phone] ACT Major depressv disorder, recurrent severe w/o psych features 7 Albrecht [facility] CPSS Jak. [address] [place] [address], [place], [place], [address], [place]. tel:[phone] [employer], [address], [place], [place], [address], [place] tel:[phone] ACT Major depressv disorder, recurrent severe w/o psych features 7 [facility] CPSS Jak. [address] [facility], [place], [place], [address], [place]. tel:[phone] [employer], [address], [place], [place], [address], [place] tel:[phone] ACT Major depressv disorder, recurrent severe w/o psych features 7 No Information [employer], [address], [place], [place], [address], [place] tel:[phone] ACT Major depressv disorder, recurrent severe w/o psych features Dec-2 2- 7 Philip-Lashle y POWER [employer]EM[employer] TECHNICIAN [employer] Jesica. [address] [facility], [place], [place], [address], [place]. tel:[phone] [employer], [address], [place], [place], [address], [place] tel:[phone] ACT Major depressv disorder, recurrent severe w/o psych features 2 7 Phliip-Lashle y POWER [employer]EMAN TECHNICIAN [employer] Jesica. [address] [facility], [place], [place], [address], [place]. tel:[phone] [employer], [address], [place], [place], [address], [place] tel:[phone] ACT Major depressv disorder, recurrent severe w/o psych features Dec- 7 Albrecht T CPSS Jak. [address] [place] [address], [place], [place], [address], [place]. tel:[phone] [employer], [address], [place], [place], [address], [place] tel:[phone] ACT Major depressv disorder, recurrent severe w/o psych features 2 7 Gabino T [facility] Jamey. [address] [place] [address], [place], [place], [address], [place]. tel:[phone] [employer], [address], [place], [place], [address], [place] tel:[phone] ACT Major depressv disorder, recurrent severe w/o psych features 2 7 Gabino T [facility] Jamey. [address] [place] [address], [place], [place], [address], [place]. tel:[phone] [employer], [address], [place], [place], [address], [place] tel:[phone] ACT Major depressv disorder, recurrent severe w/o psych features Jake-0 8-201 7 Albrecht T CPSS Jak. [address], [place], [place], [address], [place]. tel:[phone] [employer], [address], [place], [place], [address], [place] tel:[phone] [id number] ACT Major depressv disorder, recurrent severe w/o psych features Jake-0 8-201 7 Trena LEYVA CPSS Jak. [address], [id number], [place]. tel:[phone] [employer], [address], [place], [place], [address], [place] tel:[phone] ACT Major depressv disorder, recurrent severe w/o psych features Jake-0 8-201 7 No Information [employer], [address], [place], [place], [address], [place] tel:[phone] ACT Major depressv disorder, recurrent severe w/o psych features Jake-0 8-201 7 No Information [employer], [address], [place], [place], [address], [place] tel:[phone] ACT Major depressv disorder, recurrent severe w/o psych features Jake-0 8-201 7 No Information [employer], [address], [place], [place], [address], [place] tel:[phone] ACT Major depressv disorder, recurrent severe w/o psych features Jake-0 8-201 7 No Information [employer], [address], [place], [place], [address], [place] tel:[phone] ACT Major depressv disorder, recurrent severe w/o psych features Jake-0 8-201 7 Balbir Garcia. [address] [facility], [place], [place], [address], [place]. tel:[phone] [employer], [address], [place], [place], [address], [place] tel:[phone] ACT Major depressv disorder, recurrent severe w/o psych features Jake-0 8201 7 No Information [employer], [address], [place], [place], [address], [place] tel:[phone] ACT Major depressv disorder, recurrent severe w/o psych features 7 No Information [employer], [address], [place], [place], [address], [place] tel:[phone] ACT Major depressv disorder, recurrent severe w/o psych features 7 [facility] CPSS Jak. [address] [facility], [place], [place], [address], [place]. tel:[phone] [employer], [address], [place], [place], [address], [place] tel:[phone] ACT Major depressv disorder, recurrent severe w/o psych features 7 No Information [employer], [address], [place], [place], [address], [place] tel:[phone] ACT Major depressv disorder, recurrent severe w/o psych features 7 No Information [employer], [address], [place], [place], [address], [place] tel:[phone] ACT Major depressv disorder, recurrent severe w/o psych features 7 [facility] CPSS Jak. [address] [place] [address], [place], [place], [address], [place]. tel:[phone] [employer], [address], [place], [place], [address], [place] tel:[phone] ACT Major depressv disorder, recurrent severe w/o psych features 7 No Information [employer], [address], [place], [place], [address], [place] tel:[phone] ACT Major depressv disorder, recurrent severe w/o psych features 7 Balbir [facility] Radha. [address] [facility], [place], [place], [address], [place]. tel:[phone] [employer], [address], [place], [place], [address], [place] tel:[phone] ACT Major depressv disorder, recurrent severe w/o psych features November-1 8-201 7 No Information [employer], [address], [place], [place], [address], [place] tel:[phone] ACT Major depressv disorder, recurrent severe w/o psych features November-1 7-201 7 No Information [employer], [address], [place], [place], [address], [place] tel:[phone] ACT Major depressv disorder, recurrent severe w/o psych features November- 5-201 7 Albrecht [facility] CPSS Jak. [address] [place] [address], [place], [place], [address], [place]. tel:[phone] [employer], [address], [place], [place], [address], tel:[phone] ACT Major depressv disorder, recurrent severe w/o psych features 5-201 7 Albrecht [facility] CPSS Jak. [address] [place] [address], [place], [place], [address], [place]. tel:[phone] [employer], [address], [place], [place], [address], [place] tel:[phone] ACT Major depressv disorder, recurrent severe w/o psych features November-1 0-201 7 No Information [employer], [address], [place], [place], [address], tel:[phone] ACT Major depressv disorder, recurrent severe w/o psych features May-0 9-201 7 Albrecht [facility] CPSS Jak. [address] [place] [address], [place], [place], [address], [place]. tel:[phone] [employer], [address], [place], [place], [address], [place] tel:[phone] ACT Major depressv disorder, recurrent severe w/o psych features May-0 8-201 7 Albrecht [facility] CPSS Jak. [address] [place] [address], [place], [place], [address], [place]. tel:[phone] [employer], [address], [place], [place], [address], [place] tel:[phone] ACT Major depressv disorder, recurrent severe w/o psych features May-0 3-201 7 No Information [employer], [address], [place], [place], [address], [place] tel:[phone] ACT Major depressv disorder, recurrent severe w/o psych features Oct-2 6-201 7 No Information [employer], [address], [place], [place], [address], [place] tel:[phone] ACT Major depressv disorder, recurrent severe w/o psych features Oct-2 5-201 7 Albrecht T CPSS Jak. [address] [place] [address], [place], [place], [address], [place]. tel:[phone] [employer], [address], [place], [place], [address], [place] tel:[phone] ACT Major depressv disorder, recurrent severe w/o psych features Oct-1 9-201 7 No Information [employer], [address], [place], [place], [address], [place] tel:[phone] ACT Major depressv disorder, recurrent severe w/o psych features Oct- 9-201 7 Albrecht T CPSS Jak. [address] [place] [address], [place], [place], [address], [place]. tel:[phone] [employer], [address], [place], [place], [address], [place] tel:[phone] ACT Major depressv disorder, recurrent severe w/o psych features Oct-1 7- 7 Albrecht T CPSS Jak. [address] [place] [address], [place], [place], [address], [place]. tel:[phone] [employer], [address], [place], [place], [address], [place] tel:[phone] ACT Major depressv disorder, recurrent severe w/o psych features Apr-1 2-201 7 No Information [employer], [address], [place], [place], [address], [place] tel:[phone] ACT Major depressv disorder, recurrent severe w/o psych features 7 Balbir [facility] Radha. [address] [facility], [place], [place], [address], [place]. tel:[phone] [employer], [address], [place], [place], [address], [place] tel:[phone] ACT Alcohol dependence in remissionOther stimulant dependence in remissionMajor depressv disorder, recurrent severe w/o psych features Oct- 7 No Information [employer], [address], [place], [place], [address], [place] tel:[phone] ACT Major depressv disorder, recurrent severe w/o psych features 7 No Information [employer], [address], [place], [place], [address], [place] tel:[phone] ACT Major depressv disorder, recurrent severe w/o psych features 7 No Information [employer], [address], [place], [place], [address], [place] tel:[phone] ACT Major depressv disorder, recurrent severe w/o psych features 7 Wilmar he [facility] Jesica. [address] [facility], [place], [place], [address], [place]. tel:[phone] [employer], [address], [place], [place], [address], [place] tel:[phone] ACT Major depressv disorder, recurrent severe w/o psych features 7 Trena [facility] MARIELENA Benedict. [address] [facility], [place], [place], [address], [place]. tel:[phone] [employer], [address], [place], [place], [address], [place] tel:[phone] ACT Major depressv disorder, recurrent severe w/o psych features Apr-1 0-201 7 Albrecht T CPSS Jak. [address] [facility], [place], [place], [address], [place]. tel:[phone] [employer], [address], [place], [place], [address], [place] tel:[phone] ACT Major depressv disorder, recurrent severe w/o psych features Apr-0 5-201 7 No Information [employer], [address], [place], [place], [address], [place] tel:[phone] ACT Major depressv disorder, recurrent severe w/o psych features Apr-0 3-201 7 Albrecht T CPSS Jak. [address] [facility], [place], [place], [address], [place]. tel:[phone] [employer], [address], [place], [place], [address], [place] tel:[phone] ACT Major depressv disorder, recurrent severe w/o psych features Mar-2 9-201 7 No Information [employer], [address], [place], [place], [address], [place] tel:[phone] ACT Major depressv disorder, recurrent severe w/o psych features Mar-2 7-201 7 Albrecht T CPSS Jak. [address] [facility], [place], [place], [address], [place]. tel:[phone] [employer], [address], [place], [place], [address], [place] tel:[phone] ACT Major depressv disorder, recurrent severe w/o psych features Mar-2 2-201 7 No Information [employer], [address], [place], [place], [address], [place] tel:[phone] ACT Major depressv disorder, recurrent severe w/o psych features Mar-2 1-201 7 Albrecht T CPSS Jak. [address] [place] [address], [place], [place], [address], [place]. tel:[phone] [employer], [address], [place], [place], [address], [place] tel:[phone] ACT Major depressv disorder, recurrent severe w/o psych features Sep-1 9-201 7 Albrecht [facility] CPSS Jak. [address] [place] [address], [place], [place], [address], [place]. tel:[phone] [employer], [address], [place], [place], [address], [place] tel:[phone] ACT Major depressv disorder, recurrent severe w/o psych features Mar-0 8-201 7 No Information [employer], [address], [place], [place], [address], [place] tel:[phone] ACT Major depressv disorder, recurrent severe w/o psych features Mar-0 7-201 7 Albrecht [facility] CPSS Jak. [address] [place] [address], [place], [place], [address], [place]. tel:[phone] [employer], [address], [place], [place], [address], [place] tel:[phone] ACT Major depressv disorder, recurrent severe w/o psych features Mar-0 1-201 7 No Information [employer], [address], [place], [place], [address], [place] tel:[phone] ACT Major depressv disorder, recurrent severe w/o psych features Feb-2 7-201 7 No Information [employer], [address], [place], [place], [address], [place] tel:[phone] ACT Major depressv disorder, recurrent severe w/o psych features Feb-2 2-201 7 No Information [employer], [address], [place], [place], [address], [place] tel:[phone] ACT Major depressv disorder, recurrent severe w/o psych features Feb-2 0-201 7 Albrecht [facility] CPSS Jak. [address] [place] [address], [place], [place], [address], [place]. tel:[phone] [employer], [address], [place], [place], [address], [place] tel:[phone] ACT Major depressv disorder, recurrent severe w/o psych features 7 No Information [employer], [address], [place], [place], [address], [place] tel:[phone] ACT Major depressv disorder, recurrent severe w/o psych features 7 Albrecht [facility] CPSS Jak. [address] [facility], [place], [place], [address], [place]. tel:[phone] [employer], [address], [place], [place], [address], [place] tel:[phone] ACT Major depressv disorder, recurrent severe w/o psych features Aug-0 7 No Information [employer], [address], [place], [place], [address], [place] tel:[phone] ACT Major depressv disorder, recurrent severe w/o psych features b-0 7 No Information [employer], [address], [place], [place], [address], [place] tel:[phone] ACT Major depressv disorder, recurrent severe w/o psych features Aug-0 7 No Information [employer], [address], [place], [place], [address], [place] tel:[phone] ACT Major depressv disorder, recurrent severe w/o psych features 2-201 7 Philip-Lashle y [facility] Jesica. [address] [facility], [place], [place], [address], [place]. tel:[phone] [employer], [address], [place], [place], [address], [place] tel:[phone] ACT Major depressv disorder, recurrent severe w/o psych features 8-201 7 Philip-Lashle y [employer] Jesica. [address] [facility], [place], [place], [address], [place]. tel:[phone] [employer], [address], [place], [place], [address], [place] tel:[phone] ACT Major depressv disorder, recurrent severe w/o psych features 7 Philip-Lashle y [employer] Jesica. [address] [facility], [place], [place], [address], [place]. tel:[phone] [employer], [address], [place], [place], [address], [place] tel:[phone] ACT Major depressv disorder, recurrent severe w/o psych features 7 Philip-Lashle y [employer] Jesica. [address] [place] [address], [place], [place], [address], [place]. tel:[phone] [employer], [address], [place], [place], [address], [place] tel:[phone] ACT Major depressv disorder, recurrent severe w/o psych features 7 Philip-Lashle y [employer] Jesica. [address] [facility], [place], [place], [address], [place]. tel:[phone] [employer], [address], [place], [place], [address], [place] tel:[phone] ACT Major depressv disorder, recurrent severe w/o psych features 7 Philip-Lashle y [employer] Jesica. [address] [place] [address], [place], [place], [address], [place]. tel:[phone] [employer], [address], [place], [place], [address], [place] tel:[phone] ACT Major depressv disorder, recurrent severe w/o psych features 6 No Information [employer], [address], [place], [place], [address], [place] tel:[phone] ACT Major depressv disorder, recurrent severe w/o psych features 6 No Information [employer], [address], [place], [place], [address], [place] tel:[phone] ACT Major depressv disorder, recurrent severe w/o psych features 6 No Information [employer], [address], [place], [place], [address], [place] tel:[phone] ACT Major depressv disorder, recurrent severe w/o psych features 6 No Information [employer], [address], [place], [place], [address], [place] tel:[phone] ACT Major depressv disorder, recurrent severe w/o psych features 6 No Information [employer], [address], [place], [place], [address], [place] tel:[phone] ACT Major depressv disorder, recurrent severe w/o psych features 6 Gabino [facility] CPSS Jamey. [address], [place], [place], [address], [place]. tel:[phone] [employer], [address], [place], [place], [address], [place] tel:[phone] ACT Major depressv disorder, recurrent severe w/o psych features 6 No Information [employer], [address], [place], [place], [address], [place] tel:[phone] ACT Major depressv disorder, recurrent severe w/o psych features 6 No Information [employer], [address], [place], [place], [address], [place] tel:[phone] ACT Major depressv disorder, recurrent severe w/o psych features 6 No Information [employer], [address], [place], [place], [address], [place] tel:[phone] ACT Major depressv disorder, recurrent severe w/o psych features 6 No Information [employer], [address], [place], [place], [address], [place] tel:[phone] ACT Major depressv disorder, recurrent severe w/o psych features 6 No Information [employer], [address], [place], [place], [address], [place] tel:[phone] ACT Major depressv disorder, recurrent severe w/o psych features 6 No Information [employer], [address], [place], [place], [address], [place] tel:[phone] ACT Major depressv disorder, recurrent severe w/o psych features 6 No Information [employer], [address], [place], [place], [address], [place] tel:[phone] ACT Major depressv disorder, recurrent severe w/o psych features 6 No Information [employer], [address], [place], [place], [address], [place] tel:[phone] ACT Major depressv disorder, recurrent severe w/o psych features 6 No Information [employer], [address], [place], [place], [address], [place] tel:[phone] ACT Major depressv disorder, recurrent severe w/o psych features 6 No Information [employer], [address], [place], [place], [address], [place] tel:[phone] ACT Major depressv disorder, recurrent severe w/o psych features 6 No Information [employer], [address], [place], [place], [address], [place] tel:[phone] ACT Major depressv disorder, recurrent severe w/o psych features 6 Gabino [facility] CPSS Jamey. [address], [place], [place], [address], [place]. tel:[phone] [employer], [address], [place], [place], [address], [place] tel:[phone] ACT Major depressv disorder, recurrent severe w/o psych features 6 No Information [employer], [address], [place], [place], [address], [place] tel:[phone] ACT Major depressv disorder, recurrent severe w/o psych features 6 No Information [employer], [address], [place], [place], [address], [place] tel:[phone] ACT Major depressv disorder, recurrent severe w/o psych features 6 No Information [employer], [address], [place], [place], [address], [place] tel:[phone] ACT Major depressv disorder, recurrent severe w/o psych features 6 No Information [employer], [address], [place], [place], [address], [place] tel:[phone] ACT Major depressv disorder, recurrent severe w/o psych features [facility] CPSS Jak. [address] [place] [address], [id number], [place]. tel:[phone] [employer], [address], [place], [place], [address], [place] tel:[phone] ACT Major depressv disorder, recurrent severe w/o psych features [facility] CPSS Jak. [address], [address], [place]. tel:[phone] [employer], [address], [place], [place], [address], [place] tel:[phone] ACT No Information 6 No Information [employer], [address], [place], [place], [address], [place] tel:[phone] ACT No Information 6 No Information [employer], [address], [place], [place], [address], [place] tel:[phone] ACT Major depressv disorder, recurrent severe w/o psych features 6 No Information [employer], [address], [place], [place], [address], [place] tel:[phone] ACT Major depressv disorder, recurrent severe w/o psych features 3 6 No Information [employer], [address], [place], [place], [address], [place] tel:[phone] ACT Major depressv disorder, recurrent severe w/o psych features 6201 6 No Information [employer], [address], [place], [place], [address], [place] tel:[phone] ACT Major depressv disorder, recurrent severe w/o psych features 0-201 6 Albrecht [facility] CPSS Jak. [address] [facility], [place], [place], [address], [place]. tel:[phone] [employer], [address], [place], [place], [address], [place] tel:[phone] ACT No Information 6 6 Albrecht [facility] CPSS Jak. [address] [facility], [place], [place], [address], [place]. tel:[phone] [employer], [address], [place], [place], [address], [place] tel:[phone] ACT Major depressv disorder, recurrent severe w/o psych features 8 6 No Information [employer], [address], [place], [place], [address], [place] tel:[phone] ACT Major depressv disorder, recurrent severe w/o psych features 8 6 Albrecht [facility] CPSS Jak. [address] [place] [address], [place], [place], [address], [place]. tel:[phone] [employer], [address], [place], [place], [address], tel:[phone] ACT Major depressv disorder, recurrent severe w/o psych features 7 6 No Information [employer], [address], [place], [place], [address], [place] tel:[phone] ACT Major depressv disorder, recurrent severe w/o psych features 7- 6 [facility] CPSS Jak. [address] [place] [address], [place], [place], [address], [place]. tel:[phone] [employer], [address], [place], [place], [address], [place] tel:[phone] ACT Major depressv disorder, recurrent severe w/o psych features 6-201 6 [facility] CPSS Jak. [address] [place] [address], [place], [place], [address], [place]. tel:[phone] OFFICE/OUTPAT IENT VISIT, [facility] [employer], [address], [place], [id number], [place] tel:[phone] ACT Major depressv disorder, recurrent severe w/o psych features 3-201 6 No Information [employer], [address], [place], [place], [id number], [place] tel:[phone] ACT Major depressv disorder, recurrent severe w/o psych features 3- 6 [facility] [address] [place] [address], [place], [place], [id number], [place]. tel:[phone] [employer], [address], [place], [place], [id number], [place] tel:[phone] ACT Major depressv disorder, recurrent severe w/o psych features November- 0-201 6 No Information [employer], [address], [place], [place], [id number], [place] tel:[phone] ACT Major depressv disorder, recurrent severe w/o psych features November-0 7-201 6 No Information [employer], [address], [place], [place], [id number], [place] tel:[phone] ACT No Information May-0 5-201 6 No Information PSYCHIATRIC DX EVALATION W/ MED SRV [employer], [address], [place], [place], [id number], [place] tel:[phone] ACT Major depressive disorder, Recurrent episode, Severe November-0 - 6 No Information [employer], [address], [place], [place], [id number], [place] tel:[phone] ACT No Information November-0 - 6 No Information [employer], [address], [place], [place], [id number], [place] tel:[phone] ACT Major depressv disorder, recurrent severe w/o psych features November-0 - 6 [facility] Jamey. [address], [id number], [place]. tel:[phone] [employer], [address] [facility], [place], [place], [id number], [place] tel:[phone] ACT No Information 0 6 No Information OFFICE/OUTPAT IENT VISIT, [facility] [employer], [address] [facility], [place], [place], [id number], [place] tel:[phone] [facility] No Information 6 No Information [employer], [address] [facility], [place], [place], [id number], [place] tel:[phone] [facility] No Information 6 No Information OFFICE/OUTPAT IENT VISIT, [facility] [employer], [address] [facility], [place], [place], [id number], [place] tel:[phone] [facility] No Information 6 [employer] Marian. [address] [place] [address], [place], [place], [id number], [place]. tel:[phone] [employer], [address], [place], [place], [id number], [place] tel:[phone] [facility] No Information 6 No Information [employer], [address], [place], [id number], [place] tel:[phone] [facility] No Information 6 No Information [employer], [address], [place], [place], [id number], [place] tel:[phone] [facility] No Information 6 No Information [employer], [address], [place], [place], [id number], [place] tel:[phone] [facility] No Information 6 No Information [employer], [address], [place], [place], [id number], [place] tel:[phone] [facility] Major depressv disorder, recurrent severe w/o psych features 6 No Information [employer], [address], [place], [place], [id number], tel:[phone] [facility] No Information 6 No Information [employer], [address], [place], [place], [id number], tel:[phone] [facility] 23 Hour No Information 6 No Information [employer], [address], [place], [place], [id number], tel:[phone] [facility] Inpatient No Information 6 [facility] Alexis. [address] [place] [address], [id number], . tel:[phone] [employer], [address] [facility], [place], [place], [id number], tel:[phone] [facility] 23 Hour No Information 6 No Information [employer], [address], [place], [place], [id number], tel:[phone] [facility] 23 Hour No Information 6 No Information Family History Family Member Type Diagnosis Age At Onset No Information Immunizations Vaccine Date Status Comments Flucelvax ccIIV4 0.5ml (IM Deltoid Adult 18+) refused Source: New Immuniza tion Record Payers Payer name Insurance type Covered constitution party ID Authoriza tion(s) No Information Social History Type Description Quantity Date Captured Comments Sex Female Smoking Status No Information Chief Complaint And Reason For Visit No Information Reason For Referral Reason For Referral No Information Plan Of Treatment Date Type Action Status Future Order: Lab Order CBC W/DI FF, W/PLT (3000), Ordered on: Ordered Future Order: Lab Order COMPREHE NSIVE METABOLIC PANEL ([id number]), Ordered on: Ordered Future Order: Lab Order T3 FREE NON-DIALYSIS ([id number]), Ordered on: Ordered Future Order: Lab Order TSH W/RE FLEX TO FREE T4 ([id number]), Ordered on: Ordered Future Order: Lab Order HEMOGLOB IN A1c WITH eAG ([id number]), Ordered on: Ordered History Of Present Illness Encounter Date Complaint History Of Prese nt Illness No Information Functional Status Date Functional Assessmen t No Information Instructions Date Instruction Additional Infor mation No Information Assessments Type Assessment Date No Information Patient Care Teams Name Effective Dates (start - stop) Status Members No Information
== END 2024-06-14 14:04 | disposition home or self-care (01) ==
PROVIDERS: PCP Internal Medicine; Visit Provider Internal Medicine
DX: R07.2 Precordial pain (principal); R06.02 Shortness of breath
CPT/HCPCS: 93010; 99203

== ENCOUNTER → 2024-06-14 12:53 | Outpatient (BNVA) | payer MEDICAID, SELFPAY | PROVIDERS: PCP Internal Medicine; Visit Provider Internal Medicine | DX: I25.10 Atherosclerotic heart disease of native coronary artery without angina pectoris (principal); R07.2 Precordial pain; R06.02 Shortness of breath | CPT/HCPCS: 93005; 99202 ==

== ENCOUNTER → 2024-07-17 09:36 | Outpatient (REF) | payer MEDICAID, SELFPAY ==
--- NOTE | 2024-07-17 09:55 | CA_ITS ---
Transthoracic Echocardiogram Patient (Last, First, Middle): Leatha Madrigal, Gender: Female Date of : 1985 Age: 39 Procedure Date: 07/17/2024 Procedure Type: Transthoracic Echocardiogram Location: OP Height: 175.26 cm Weight: 84.82 kg BSA: 2.01 m2 Heart Rate: bpm BP: 116 / 62 mmHg Airline Attendant: JACKLYN Referring MD: Fredrick John MD Symptoms: R07.2 - Precordial pain Study Quality: Fair ECG Rhythm: Sinus Conclusions: - The left ventricular systolic function is mildly decreased. The visually estimated ejection fraction is between 45-50%. - No obvious valvular pathology seen on this study. Findings Left Ventricle Normal left ventricular cavity size. There is normal left ventricular wall thickness. The left ventricular systolic function is mildly decreased. The visually estimated ejection fraction is between 45-50%. There is mild global hypokinesis. Diastolic function is normal for age. LV peak GLS -15.5%. Right Ventricle Normal right ventricular cavity size and systolic function. Atria Both atria are normal in size. Aortic Valve There is a normal trileaflet aortic valve. There is no aortic valve stenosis. There is no aortic valve regurgitation. Mitral Valve The mitral valve appears normal. There is trace mitral valve regurgitation. There is no mitral valve stenosis. Pulmonic Valve The pulmonic valve is likely normal. Tricuspid Valve There is no tricuspid valve regurgitation. Tricuspid regurgitation envelope is inadequate for calculation of right ventricular systolic pressure. Great Vessels The asc aorta and aortic arch are normal in size. Venous The inferior vena cava is normal in size and collapses greater than 50% with inspiration. Pericardium/Pleural There is no evidence of pericardial effusion. Prior Study Comparison No prior study available for comparison. Recommendations, Care & Conclusions No obvious valvular pathology seen on this study. Measurements 2D Linear Measurements IVSd: 0.91 0.6-0.9/0.6-1.0 cm LVIDd: 4.48 3.9-5.3/4.2-5.9 cm LVIDd Index: 2.23 2.4-3.2/2.2-3.1 cm/m2 LVIDs: 3.76 2.0-3.6 cm LVPWd: 0.87 0.7-1.1 cm LA Diam: 3.40 2.7-3.8/3.0-4.0 cm LAIDs Index: 1.69 1.5-2.3 cm/m2 LV Mass: 161.74 67-162/88-224 g LV Mass Index: 80.47 43-95/49-115 g/m2 LVOT Diam: 2.00 3.0+(-)1.3 cm 2D Systolic Function EF 4C: 44.70 >55% EF 2C: 59.50 >55% EF BiP: 51.60 >55% Mitral Valve MV Pk E: 0.59 MV PK A: 0.72 MV Decel Time: 172.00 E/A: 0.80 E'Lateral: 10.10 E'Medial: 7.07 E/E' Med: 8.30 E/E' Lat: 5.80 PHT: 50.00 MVA PHT: 4.40 Decel Graham: 3.42 Aortic Valve AoV Pk Ryan: 1.09 AoV Mn Ryan: 0.82 AoV VTI: 0.23 AoV Pk Grad: 5.00 Aov Mn Grad: 3.00 CHAYA Cont.VTI: 2.65 LVOT LVOT Pk Ryan: 0.91 LVOT Mn Ryan: 0.67 LVOT VTI: 0.19 LVOT Pk Grad: 3.00 LVOT Mn Grad: 2.00 LVOT Diam: 2.00 LVOT Area: 3.14 Diastolic Function MV Pk E: 0.59 MV Pk A: 0.72 E/A: 0.80 E'Medial: 7.07 E/E' Med: 8.30 E' Laterial: 10.10 E/E' Lat: 5.80 Right Ventricle TAPSE (mm): 20.40 TVS' Ryan: 11.20 Tricuspid Valve RA Press: 3.00 Great Vessels Aorta Sinus of Valsalva: 3.26 2.0-3.[address] Ridge: 2.48 1.7-3.4 cm Ao Asc: 3.00 2.1-3.4 cm Ao Arch: 2.70 Updated in Other Vendor System with Status of Final Fredrick John MD electronically signed on 07/19/2024 11:59:09 AM with status of Final
--- OUTSIDE RECORDS SUMMARY | 2024-07-17 09:59 | XMS_ITS | Continuity of Care Document ---
Author Organization [facility] Address [address] [place] [address] Phone Care Team Providers Care Metal Coater Operator Name Role Phone ZProvider, Conversion Unavailable Unavailabl e Procedures Procedure Date X-RAY EXAM OF FOOT X-RAY EXAM OF HAND X-Ray Exam Sacroiliac Joints Advance Directives Directive Yes / No Effective Date File Name No Information Encounters Encounter Description Practice Location Reason(s) For Visit Diagnoses Date Provider Providers Copied on Encounter [facility], [address], [place], [place], [id number], tel:[phone] [facility] No Information ZProvider Conversion . . [facility], [address], [place], [place], [id number], tel:[phone] [facility] Spondylosis w/o myelopathy or radiculopathy, lumbar regionOther specified arthritis, multiple sitesTachycardia, unspecifiedDecrease d white blood cell count, unspecified ZProvider Conversion . . [facility], [address], [place], [place], [address], tel:[phone] [facility] Anxiety disorder, unspecifiedPain in right hipOther specified [...] I Payers Payer name Insurance type Covered constitution party ID Authorblair tiandra(s) No Information Social History Type Description Quantity [...] Information Instructions Date Instruction Additional Infor mation 31-year-old female w ith reported history of [...] Related to Other specified arthritis, multiple sites Clinical evaluation does not support a rheumatic [...] clinic in future if symptoms and signs exchange consultant time. Her white blood count and ANC [...] above. Related to Pain in right hip Noted to be anxious on examination with heart rate 104. Patient reports situational anxiety. Advise follow up with PCP as needed. Related to Anxiety disorder, unspecified Will refer to hematology. Relate d to Decreased white blood cell count, unspecified Will refer to pain m anagement.Educated [...] for further evaluation. Related to Tachycardia, unspecified Advised minimizing NSAID use. 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 Not currently followed by pain management. Will refer. Related to Spondylosis w/o myelopathy or radiculopathy, lumbar region Assessments Type Assessment Date No Information Patient Care Teams Name Effective Dates (start - stop) Status Members No Information
== END ==
LOC: HO.CARD 09:36
PROVIDERS: Visit Provider Internal Medicine
DX: R07.2 Precordial pain (principal)
CPT/HCPCS: 93306; 93356

== ENCOUNTER → 2024-07-17 09:55 | Outpatient (BNV) | payer MEDICAID, SELFPAY | PROVIDERS: Visit Provider Internal Medicine | DX: R07.2 Precordial pain (principal); R93.1 Abnormal findings on diagnostic imaging of heart and coronary circulation | CPT/HCPCS: 93306; 93356 ==

== ENCOUNTER 2024-08-06 09:41 | Outpatient (AMB) | payer MEDICAID, SELFPAY ==
[2024-08-06 09:47] VITALS: BP 100/72; PULSE 112; BMI 28.8
--- NOTE | 2024-08-06 09:47 | A.OFFVIS_ITS ---
Vital Signs 08/06/24 09:47 Height 5 ft 9 in Weight 194 lb 14.218 oz BMI 28.8 BP 100/72 Blood Pressure Location Lt brachial Pulse 112 H Pulse Source Pulse Oximeter Intake Visit Reasons: follow up after cta Test Engine Evaluator Required: No Habilitation Training Specialist: Habilitation Training Specialist Present Allergies cat dander Allergy (Severe, Verified 08/06/24 09:49) Sneezing Seasonal Allergies Allergy (Severe, Verified 08/06/24 09:49) Sneezing Medication List - Last Reconciled 08/06/24 by XIN JuanC atomoxetine 100 mg PO DAILY clonidine HCl 0.1 mg PO BEDTIME cyclobenzaprine 10 mg PO TID diclofenac sodium 75 mg PO BID diphenhydramine HCl (Benadryl Allergy) 50 mg PO TID PRN lorazepam 1 mg PO TID PRN lumateperone (Caplyta) 42 mg PO DAILY prazosin 8 mg PO BEDTIME trazodone 150 mg PO BEDTIME PRN varenicline 1 mg PO BID HPI HPI follow up after cta: Details: Leatha is a 39-year-old female with past medical history of PTSD, depression who underwent cardiac evaluation for chest discomfort and shortness of breath. She had an echocardiogram and CTA of the coronary arteries and now presents for follow-up. Today she reports that she still gets random pains in her chest that occur infrequently. She also has shortness of breath which she notices more consistently with physical activity. She says she has asthma and if she uses her inhaler this will help. She does feel heart palpitations like her heart is skipping beats. She does not notice any sustained rapid beats. No dizziness, presyncope, syncope, falls. No PND, orthopnea or edema. She believes that she may have sleep apnea. She admits to being sedentary. Two friends are present with her today. [facility] Medical History Hemochromatosis Major depression Agoraphobia PTSD (post-traumatic stress disorder) TMJ (dislocation of temporomandibular joint) Acute anxiety Asthma Family History Mother No problems noted. Father No problems noted. Social History Alcohol intake: never Patient Tobacco Use Status: Former Tobacco user Review of Systems Const All systems reviewed & are unremarkable except as noted in HPI and below ENT Denies dizziness Card Details: palpitations, heart skipping Denies chest pain, Denies chest pain at rest, Denies chest pain with activity, Denies pedal edema, Denies edema, Denies leg edema, Denies lightheadedness, Denies palpitations, Denies dyspnea, Reports dyspnea on exertion and Denies orthopnea Resp Denies cough, Denies dyspnea and Reports dyspnea on exertion GI Denies hematochezia and Denies change in stool character Musc Denies abnormal gait, Denies limited range of motion, Denies muscle cramps, Denies muscle weakness, Denies numbness, Denies radiating pain into limb, Denies stiffness and Denies tingling Neuro Denies abnormal gait, Denies dizziness, Denies numbness and Denies tingling Endo Denies palpitations Physical Exam Vital Signs: Last Vital Signs Pulse 112 H 08/06/24 09:47 BP 100/72 08/06/24 09:47 BMI result Body Mass Index 28.8 Const General: cooperative, healthy appearing, comfortable and no acute distress Orientation/consciousness: patient oriented x3 Neck Neck: Yes normal visual inspection Resp Effort & Inspection: normal respiratory effort Auscultation: clear to auscultation bilaterally, no rales, no rhonchi and no wheezes Cardio Rate: regular rate Rhythm: regular rhythm Heart sounds: S1 normal heart sound present, S2 normal heart sound present, no murmurs and no rubs Neuro General: patient oriented x3 Extrem General: Yes normal to inspection and No no pedal edema Psych Appearance: grossly normal Mental Status: mental status grossly normal Speech and movement: Normal speech and movement present Assessment & Plan Assessment & Plan (1) Precordial chest pain: Code(s): R07.2 - Precordial pain Category: Medical Plan: Reports of intermittent atypical type chest discomfort. No exertional chest discomfort. Low cardiac risk profile. She did have a echocardiogram on 07/17/2024 showing EF 45-50%, no valve abnormalities are noted regional wall motion abnormalities. A CTA of the coronary arteries done 07/25/2024 showed no CAD. Test results reviewed with her. Unclear reason for her mildly reduced EF. She was noted to have sinus tachycardia on last 2 visits. She tells me she has issues with anxiety. She will notice some heart palpitations which feel like skipped beats. She believes she may have sleep apnea. At this time will check a Holter monitor to assess for arrhythmia and average heart rate. Will check a home sleep study to evaluate for sleep apnea. Cardiology follow-up 6 weeks, sooner if needed. (2) Shortness of breath: Code(s): R06.02 - Shortness of breath Category: Medical Plan: As above, most likely related to asthma, deconditioning. (3) Abnormal echocardiogram: Code(s): R93.1 - Abnormal findings on diagnostic imaging of heart and coronary circulation Category: Medical Plan: As above (4) Palpitations: Code(s): R00.2 - Palpitations Category: Medical Plan: As above (5) Hemochromatosis: Code(s): E83.119 - Hemochromatosis, unspecified Category: Medical Plan: She reports a history of hemochromatosis. She tells me she moved to this area and has not been able to get a PCP for the last 1.5 years. She has not had any follow-up or testing for her hemochromatosis. Will have her check a CBC today. Will also update CMP and TSH with her issue of heart palpitations. Will take the liberty to refer her to Hematology so that she can resume appropriate treatment for her hemochromatosis. Plan Time spent on chart review, documentation, interview and assessment Orders: Orders Comprehensive Met. Panel Today R06.02 - Shortness of breath, R07.2 - Precordial pain Complete Blood Count Auto Diff Today R06.02 - Shortness of breath, R07.2 - Precordial pain RT home sleep study Today G47.10 - Hypersomnia, unspecified, R93.1 - Abnormal findings on diagnostic imaging of heart and coronary circulation TSH reflex Free T4 Today R06.02 - Shortness of breath, R07.2 - Precordial pain ECG 3 day holter monitor Today R00.2 - Palpitations, R93.1 - Abnormal findings on diagnostic imaging of heart and coronary circulation Referrals Hematology & Oncology Referral E83.119 - Hemochromatosis, unspecified Coding Level of Care Code Est Pt Level 4 (50535) Complex EM visit Add On G2211 Diagnoses Precordial chest pain R07.2 Shortness of breath R06.02 Abnormal echocardiogram R93.1 Palpitations R00.2 Hemochromatosis E83.119 Time Spent (min) 36
--- OUTSIDE RECORDS SUMMARY | 2024-08-06 14:06 | XMS_ITS | Continuity of Care Document ---
Author Organization [facility] Address [address] [place] [address] Phone Care Team Providers Care Asbestos Removal Supervisor Name Role Phone ZProvider, Conversion Unavailable Unavailabl e Procedures Procedure Date X-RAY EXAM OF FOOT X-RAY EXAM OF HAND X-Ray Exam Sacroiliac Joints Advance Directives Directive Yes / No Effective Date File Name No Information Encounters Encounter Description Practice Location Reason(s) For Visit Diagnoses Date Provider Providers Copied on Encounter [facility], [address], [place], [place], [id number], tel:[phone] [facility] No Information ZProvider Conversion . . [facility], [address], [place], [place], [id number], tel:[phone] [facility] Spondylosis w/o myelopathy or radiculopathy, lumbar regionOther specified arthritis, multiple sitesTachycardia, unspecifiedDecrease d white blood cell count, unspecified ZProvider Conversion . . 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 Not currently followed by pain management. Will refer. Related to Spondylosis w/o myelopathy or radiculopathy, lumbar region Advised minimizing NSAID use. Re lated to care home (current) use of non-steroidal non-inflam (NSAID) Noted to be anxious on examination with heart rate 104. Patient reports situational anxiety. Advise follow up with PCP as needed. Related to Anxiety disorder, unspecified Will evaluate as above. Related to Pain in right hip 31-year-old female w ith reported history of [...] clinic in future if symptoms and signs manager of change time. Her white blood count and ANC are low. Will refer to Hematology for further evaluation. Patient was advised to bring a copy of her labs to her visit.Patient verbalized understanding and agreement with the plan. A copy of this report has been sent to the referring provider. Related to Other specified arthritis, multiple sites Assessments Type Assessment Date No Information Patient Care Teams Name Effective Dates (start - stop) Status Members No Information
== END 2024-08-06 10:36 | disposition home or self-care (01) ==
PROVIDERS: Visit Provider Nurse Practitioner Family
DX: R07.2 Precordial pain (principal); R06.02 Shortness of breath; R93.1 Abnormal findings on diagnostic imaging of heart and coronary circulation; R00.2 Palpitations; E83.119 Hemochromatosis, unspecified
CPT/HCPCS: 99214; G2211

== ENCOUNTER → 2024-08-06 09:41 | Outpatient (BNVA) | payer MEDICAID, SELFPAY | PROVIDERS: Visit Provider Nurse Practitioner Family | DX: R07.2 Precordial pain (principal); R06.02 Shortness of breath; R93.1 Abnormal findings on diagnostic imaging of heart and coronary circulation; R00.2 Palpitations; E83.119 Hemochromatosis, unspecified | CPT/HCPCS: 99212 ==

== ENCOUNTER → 2024-08-09 12:52 | Outpatient (REF) | payer MEDICAID, SELFPAY ==
--- NOTE | ~2024-08-09 | XR_ITS ---
EXAMINATION: XR HIP 2 OR MORE VIEWS RIGHT HISTORY: PAIN RT HIP IMPULSE DISORDER COMPARISON: There are no prior studies for comparison. FINDINGS: Two views of the right hip are submitted. Osseous mineralization is normal. There is no fracture or dislocation. The joint space is maintained. The soft tissues are unremarkable. XR/XR hip RT min 2V IMPRESSION: Unremarkable examination of the right hip. Electronically signed by: Monty Villegas MD 08/09/2024 02:23 PM [facility]
[2024-08-09 13:46] LABS: MANUAL DIFF FLAG NO
[2024-08-09 14:22] LABS: Basophils Percent Auto 0.9 % (0-2); Eosinophils Absolute Auto 0.1 X10*3/uL (0.0-0.4); Hemoglobin 14.8 g/dl (12.0-16.0); Imm Gran Abs Auto 0.01 X10*3/uL (0.00-0.03); Imm Gran Pct Auto 0.2 % (0.0-0.4); Lymphocytes Absolute Auto 1.6 X10*3/uL (1.2-4.9); Lymphocytes Percent Auto 35.3 % (20-40); Mean Corpuscular HGB Conc 34.4 g/dl (31.0-35.0); Mean Corpuscular Hemoglobin 32.3 pg (27.0-33.0); Mean Corpuscular Volume 93.9 fL (80.0-98.0); Monocytes Absolute Auto 0.4 X10*3/uL (0.1-1.2); Monocytes Percent Auto 7.7 % (2-11); Neutrophils Absolute Auto 2.5 x10*3/uL (2.0-8.3); Neutrophils Percent Auto 53.9 % (45-73); Platelet Count 266 X10*3/uL (160-400); Red Blood Count 4.58 X10*6/uL (4.20-5.50); Red Cell Distribution Width 12.7 % (11.0-16.0); White Blood Count 4.6 X10*3/uL (4.8-10.8)
[2024-08-09 15:13] LABS: Alanine Aminotransferase 13 U/L (0-31); Albumin Level 4.5 g/dL (3.5-5.0); Alkaline Phosphatase 57 U/L (39-117); Anion Gap 12 (12-20); Aspartate Amino Transferase 17 U/L (5-31); Bilirubin Total 0.3 mg/dL (0.0-1.0); Blood Urea Nitrogen 7 mg/dL (9-16); Calcium 9.2 mg/dL (8.4-10.2); Carbon Dioxide 28 mmol/L (22-29); Chloride 104 mmol/L (96-108); Estimated Glomerular Filt Rate > 60; Glucose Random 82 mg/dL (60-115); Potassium 4.1 mmol/L (3.3-5.1); Sodium 140 mmol/L (135-145); Total Protein 8.1 g/dL (6.5-8.0)
[2024-08-09 15:19] LABS: TSH reflex Free T4 1.56 uIU/mL (0.32-4.0); Vitamin D 25-OH Total 29.8 ng/mL (>30)
--- OUTSIDE RECORDS SUMMARY | 2024-08-09 16:42 | XMS_ITS | Continuity of Care Document ---
Author Organization [facility] Address [address] [place] [address] Phone Care Team Providers Care Staff Midwife Name Role Phone ZProvider, Conversion Unavailable Unavailabl e Procedures Procedure Date X-RAY EXAM OF FOOT X-RAY EXAM OF HAND X-Ray Exam Sacroiliac Joints Advance Directives Directive Yes / No Effective Date File Name No Information Encounters Encounter Description Practice Location Reason(s) For Visit Diagnoses Date Provider Providers Copied on Encounter [facility], [address], [place], [place], [id number], tel:[phone] [facility] No Information ZProvider Conversion . . [facility], [address], [place], [place], [id number], tel:[phone] [facility] Spondylosis w/o myelopathy or radiculopathy, lumbar regionOther specified arthritis, multiple sitesTachycardia, unspecifiedDecrease d white blood cell count, unspecified ZProvider Conversion . . 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 Not currently followed by pain management. Will refer. Related to Spondylosis w/o myelopathy or radiculopathy, lumbar region Advised minimizing NSAID use. Re lated to penitentiary (current) use of non-steroidal non-inflam (NSAID) Heart [...] clinic in future if symptoms and signs spinning frame changer time. Her white blood count and ANC [...]
== END ==
LOC: HO.CARD 12:52
PROVIDERS: Absent Provider Nurse Practitioner Family; PCP Family Medicine; Visit Provider Nurse Practitioner Family
DX: R07.2 Precordial pain (principal); R00.2 Palpitations; R06.02 Shortness of breath; R93.1 Abnormal findings on diagnostic imaging of heart and coronary circulation; F33.1 Major depressive disorder, recurrent, moderate; F43.10 Post-traumatic stress disorder, unspecified; F33.2 Major depressive disorder, recurrent severe without psychotic features; M25.551 Pain in right hip
CPT/HCPCS: 36415; 73502; 80053; 82306; 84443; 85025; 93242

== ENCOUNTER → 2024-08-09 13:01 | Outpatient (BNV) | payer MEDICAID, SELFPAY | PROVIDERS: Absent Provider Nurse Practitioner Family; PCP Family Medicine; Visit Provider Internal Medicine Cardiovascular Disease | DX: R00.0 Tachycardia, unspecified (principal) | CPT/HCPCS: 93244 ==

== ENCOUNTER → 2024-08-09 13:47 | Outpatient (BNV) | payer MEDICAID, SELFPAY | PROVIDERS: Absent Provider Nurse Practitioner Family; PCP Family Medicine; Visit Provider Radiology Diagnostic Radiology | DX: M25.551 Pain in right hip (principal) | CPT/HCPCS: 73502 ==

== ENCOUNTER → 2024-09-13 10:00 | Outpatient (BNV) | payer MEDICAID, SELFPAY | PROVIDERS: Visit Provider Nurse Practitioner Family | DX: E83.19 Other disorders of iron metabolism (principal) | CPT/HCPCS: 99204 ==

== ENCOUNTER 2024-10-12 10:03 | Outpatient (RCR) | payer MEDICAID, SELFPAY | END 2024-12-12 09:34 | disposition home or self-care (01) | LOC: HO.PT 10:03 | PROVIDERS: Visit Provider Physician Assistant | DX: M47.26 Other spondylosis with radiculopathy, lumbar region (principal) | CPT/HCPCS: 97110; 97161; 97535 ==

== ENCOUNTER 2024-10-30 15:23 | Outpatient (REF) | payer MEDICAID, SELFPAY ==
--- OUTSIDE RECORDS SUMMARY | 2024-10-30 18:17 | XMS_ITS | Continuity of Care Document ---
Author Organization [facility], FP, EHC, OFFICE Address [address] [place] [address] Care Team Providers Care Pit Steward Name Role Phone [facility] Golf Starter And Ranger JULIO C HADLEY Primary Care Provider Assessment Encounter Date Assessment Date Assessment LastModified by Organization Details LastModified Time 10/29/2024 10/29/2024 I have personally spent >50 minutes with patient, chart review and updating, coordinating care and implementing a care plan with this patient. [email or web address] Not available 10/29/2024 16:12:24 Plan of Treatment Reminders Order Date Submit Date Provider Last Modified By Organization Details Last Modified Time Details Appointments Welln ess Visit 30 2024 03:00P M JULIO C HADLEY, OCCUPATIONAL HEALTH TECHNICIAN-BC Not available Not available Not available Lab hepat itis C virus Ab, serum 2024 025 [email or web address] [facility], [address], [place], [address], 10/29/2024 16:06:44 Referral healt h agile scrum coach ing refer ral 2024 025 [email or web address] [facility], [address], [place], [address], 10/29/2024 16:09:58 aller gist & immun ologi st refer ral 2024 025 [email or web address] [facility], [address], [place], [address], 10/29/2024 16:09:58 gastr oentmat mejiasramirez ist refer ral 2024 025 [email or web address] [facility], [address] [place] [address] Dr, [address], [place], [address], 10/29/2024 16:09:58 Procedures None recor ded. Surgeries None recor ded. Imaging None recor ded. Medication Orders varen iclin e tartr ate 1 mg table t 2024 025 [facility][id number], [address] [place], [address], 10/29/2024 16:46:05 albut mere sulfa te HFA 90 mcg/a ctuat ion aeros ol inhal er 2024 025 [facility][id number], [address] [place], [address], 10/29/2024 16:50:25 omepr azole 20 mg capsu le,de layed relea se 2024 025 [id number] [address] [place], [address], 10/29/2024 16:49:43 Patient TargetsNo targets recorded. Patient InstructionsNo instructions recorded. Reason for Referral Health Coaching Referral for Tobacco user Referring Physician: Julio C Hadley Family Medicine, Encounter Date: 10/29/2024 Milling/Polishing Operator Referral for Indigestion Referring Physician: Julio C Hadley Family [facility], Encounter Date: 10/29/2024 Cab Worker & Oracle Erp Architect Ref erral for Seasonal allergy Referring Physician: Julio C Hadley Family [facility], Encounter Date: 10/29/2024 Results Created Date Observation Date Name Description Value Unit Range Abnormal Flag Note LastModifiedBy Organization Detail LastModifiedTime 10/13/1907/23/2024 US, abdom en + pelvi s No observ ation record ed. [email or web address] Not Available 2024 16:22:07 Result Notes None recorded. Problems Name Problem SNOMED Code Status Onset Date Resolution Date Notes Provider Name and Address Organization Details Recorded Time Depressiv e disorder 20856759 Active 2024 JULIO C HADLEY [address], [address] , [facility] 5 14:34:20 Anxiety 83572382 Active 2024 JULIO C HADLEY [address], [address] , [facility] 5 14:34:30 Alcohol use disorder Active 2024 JULIO C HADLEY [address], [address] , [facility] 5 15:46:23 Abnormal cervical Papanicol aou smear 641610645 Active 2024 HPV pos at [facility] [address] RN [facility] 11:28:18 Hemochrom atosis 616671264 Active 2024 monitored by hematology ; labs [id number] with heme team JULIO C HADLEY [address], [address] , [facility] 5 16:08:27 Asthma 941946374 Active 2024 JULIO C HADLEY [address], [address] , [facility] 5 16:15:24 Problem Notes None recorded. Procedures Surgical History Date Name Laterality Status Provider Name and Address Organization Details Recorded Time 5 Smoking cessation counseling completed Carmina Mckenna Live [facility] 10/29/2024 13:36:54 5 Asthma Control Test (12 + years old) [facility] 10/29/2024 13:39:13 Imaging Results None recorded. Procedure Notes None recorded. Medical Equipment None Reported. Allergies Allergen ID Allergen Name Allergen Category Reaction Reaction Severity Criticality Documentation Date Start Date Code Code System Note Provider Name and Address Organization Details Recorded Time 997780 Product containin g glucocort icoid (product) medicatio n other Not available Not available 10/12/20242017 94987 6006 [facility]ED [facility] 13[facility]42 728499 zolpidem medicatio n Not available Not available Not available 10/12/20242018 23239 RxNorm Other react ions and sever ities : 'Ment al Statu s Viveros e'. [facility] 13:47:42 692910 Medicinal product acting as adhesive (product) environme nt,medica tion rash Not available Not available 10/12/20242017 82139 2009 [facility]ED [facility] 13:47:42 065760 bupropion hydrochlo ride medicatio n Not available Not available Not available 10/12/20242017 58600 4 RxNorm Other react ions and sever ities : 'Ment al Statu s Viveros e'. [facility] 13:47:42 Medications Name Sig Start Date Stop Date Status Note LastModified by Organization Details LastModified Time cyclobenza micah 10 mg tablet TAKE 1 TABLET BY MOUTH THREE TIMES A DAY active Not Available Not Available No t Available clonidine HCl 0.1 mg tablet TAKE ONE TO TWO (1-2) TABLETS BY MOUTH AT BEDTIME, NEEDED FOR SLEEP 10/29 completed no longer taking 10/29/24 JW Not Available Not Available Not Available meloxicam 15 mg tablet TAKE 1 TABLET BY MOUTH DAILY NEEDED FOR PAIN. TAKE WITH FOOD 10/29 completed no longer taking 10/29/24 JW Not Available Not Available Not Available alclometas one 0.05 % topical cream APPLY TOPICALL Y DAILY FOR 2-4 WEEKS. 10/29 completed no longer taking 10/29/24 JW Not Available Not Available Not Available sumatripta n 50 mg tablet PLEASE SEE ATTACHED FOR DETAILED DIRECTIO NS 10/29 completed no longer taking 10/29/24 JW Not Available Not Available Not Available clonidine HCl 0.2 mg tablet TAKE 1 TABLET BY MOUTH EVERYDAY AT BEDTIME active Not Available Not Available No t Available trazodone 150 mg tablet TAKE 1 TABLET BY MOUTH EVERY DAY AT BEDTIME NEEDED FOR SLEEP 10/29 completed no longer taking 10/29/24 JW Not Available Not Available Not Available omeprazole 20 mg capsule,de layed release active Not Available Not Available Not Available diclofenac sodium 75 mg tablet,del ayed release Take 75 mg by oral route. 10/29 completed no longer taking 10/29/24 JW Not Available Not Available Not Available folic acid 1 mg tablet TAKE 1 TABLET BY MOUTH EVERY DAY active Not Available Not Available No t Available montelukas t 10 mg tablet Take 10 mg by oral route. 10/29 completed no longer taking 10/29/24 JW Not Available Not Available Not Available hydroxyzin e HCl 25 mg tablet Take 25 mg twice a day by oral route. 10/29 completed no longer taking 10/29/24 JW Not Available Not Available Not Available ergocalcif mere (vitamin D2) 1,250 mcg (50,000 unit) capsule TAKE 1 CAPSULE BY MOUTH ONE TIME PER WEEK 10/29 completed no longer taking 10/29/24 JW Not Available Not Available Not Available lorazepam 1 mg tablet TAKE ONE (1) TABLET BY MOUTH THREE TIMES A DAY, NEEDED FOR SEVERE ANXIETY/ PANIC active Not Available Not Available No t Available azelastine 137 mcg (0.1 %) nasal spray Simpson 2 {spray}s twice a day by nasal route. 10/29 completed no longer taking 10/29/24 JW Not Available Not Available Not Available prazosin 2 mg capsule TAKE FOUR (4) CAPSULES BY MOUTH AT BEDTIME 10/29 completed no longer taking 10/29/24 JW Not Available Not Available Not Available Ventolin HFA 90 mcg/actuat ion aerosol inhaler INHALE TWO (2) PUFFS INTO THE LUNGS NEEDED EVERY 4 TO6 HOURS FOR SHORTNES S OF BREATH active Not Available Not Available No t Available hydroxyzin e pamoate 25 mg capsule TAKE 1 CAPSULE BY MOUTH TWICE A DAY NEEDED 10/29 completed no longer taking 10/29/24 JW Not Available Not Available Not Available Denta 5000 Plus 1.1 % cream USE 2-3X/SYLVIA LY, SPIT OUT EXCESS DO NOT RINSE WITH WATER. NO EATING OR DRINKING FOR 45 MIN AFTER. active Not Available Not Available No t Available duloxetine 30 mg capsule,de layed release 90 mg by oral route. 2017 active Not Available Not Available Not Avai labsai tizanidine 4 mg capsule Take 4 mg 3 times a day by oral route. 10/29 completed no longer taking 10/29/24 JW Not Available Not Available Not Available atomoxetin e 100 mg capsule TAKE 1 CAPSULE BY MOUTH EVERY DAY active Not Available Not Available No t Available vareniclin e tartrate 1 mg tablet Take 1 tablet twice a day by oral route. 10/29 completed no longer taking 10/29/24 JW Not Available Not Available Not Available diclofenac 1 % topical gel 4 times a day by topical route. active Not Available Not Available No t Available Dialyvite Vitamin D3 Max 1,250 mcg (50,000 unit) tablet Take 1250 ugs by oral route. 10/29 completed no longer taking 10/29/24 JW Not Available Not Available Not Available Caplyta 42 mg capsule TAKE 1 CAPSULE BY MOUTH EVERY DAY active Not Available Not Available No t Available Flowflex COVID-19 Antigen Home Test kit USE ONE (1) UNIT DIRECTED NEEDED IF EXPERIEN CING COVID-19 SYMPTOMS . 10/29 completed no longer taking 10/29/24 JW Not Available Not Available Not Available Lagevrio 200 mg capsule (EUA) TAKE FOUR 200 MG CAPSULES (TOTAL IS 800 MG) ORALLY EVERY 12 HOURS FOR 5 DAYS, WITH OR WITHOUT FOOD. 10/29 completed no longer taking 10/29/24 JW Not Available Not Available Not Available Vitals Date Recorded Body height Body mass index (BMI) Body weight Heart rate Systolic blood pressure Diastolic blood pressure Provider Name and Address Organization Details Last Updated DateTime 5 175.26 cm 28.5 kg/m2 31106.7 3 g 92 /min 120 mm[Hg] 80 mm[Hg] LIDIA Rae [facility] 5 13:43:11 Social History None recorded. Functional Status None recorded. Mental Status None recorded. Family History Nothing Reported. Medical History No medical history recorded. Gynecological HistoryNo gynecological history recorded. Obstetrics History GPAL:G 0 P 0 0 0 0 Immunizations Vaccine Type Date Status Note Provider Nam e and Address Organization Details Recorded Time MMR 08/09/1995 completed Savanna Melly null, [facility] 10/12/2024 13:45:22 Td(adult) unspecified formulation 03/11/1999 completed Savanna Melly null, [facility] 10/12/2024 13:45:22 Hep B, unspecified formulation 12/26/1995 completed Savanna Melly null, [facility] 10/12/2024 13:45:22 Past Encounters Encounter ID Performer Location Encounter Start Date Encounter Closed Date Diagnosis/Indication Diagnosis SNOMED-CT Code Diagnosis ICD10 Code Diagnosis Note [id number] EDUAR LEGER, [facility], OFFICE [address] [place] [address] 10/12/2024 13:42:09 10/12/2024 14:49:26 Anxiety 86299488 F41.9 Chronic anxiety impacting daily life, contributi ng to cardiac symptoms. Managed with medication , requires ongoing mental health support.- Schedule follow-up appointmen ts as needed for mental health support.- Coordinate with mental health team for ongoing management . 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 Spravato treatment interrupte d due to insurance issues, plans to restart with [facility] . [id number] EDUAR LEGER , [facility], OFFICE [address] [place] [address] 10/29/2024 13:32:09 10/29/2024 16:09:57 Screening for disorder 640375628 Z11.59 Immunization due 1343056 08 Z23 Tdap - not today, will do in future Screening mammography 24 669865 Z12.31 scheduled December, Nicotine dependence 5629 4008 F17.200 We discussed your smoking/va ping today for more than 3 minutes.Sm oking tobacco is the leading cause of preventabl e disease, disability , and in the [place]. Inhaling aerosolize d nicotine is widely believed to be safer than combustibl e tobacco, but still exposes people to numerous harmful substances , heavy metals like lead, and cancer-cau sing agents. Nicotine is harmful to developing brains and can disrupt the formation of brain circuits that control attention, learning, and susceptibi lity to addiction. We talked about tools and medication s available to help you in smoking/va ping cessation. We discussed utilizing our smoking cessation agile scrum coach and online resources. Your personal goal: to maintain quitting Tobacco user 565828015 Z 72.0 As above. Indigestion 706862848 K3 0 Severe GERD with nocturnal acid reflux. Initiating PPI therapy for symptom control within 4-8 weeks.- Prescribe omeprazole once daily, two refills.- Refer to [place] [facility] for further evaluation . Seasonal allergy 1492700 04 J30.2 ? allergies vs asthmaPati ent reporting severe, unmanageab le allergies - needing benadryl 4x/day Hemochromatosis 18717993 6 E83.119 Undergoing regular phlebotomy . Consulting hematologi st for referral guidance.- Continue regular phlebotomy as per hematology recommenda tions.- Discuss with hematologi st about potential referral to rheumatolo gy or genetics for autoimmune evaluation . Receiving weekly B12 injections and daily folic acid. Frequent monitoring and adjustment s ongoing.- Continue weekly B12 injections - eventually moving towards monthly injections .- Continue daily folic acid supplement ation. Asthma 865367530 J45.90 9 Health Concerns Section Related Observation LastModified by Organization Detai ls LastModified Time None Recorded Concern Status LastModified by Organization Details LastModified Time None Recorded Payers Encounter Date Sequence Insurance Name Policy Number Policy Dorman Covered Member ID Dorman Member ID Guarantor Name 10/29/2024 1 [facility] [employer] - DOS ON OR AFTER 2022 - [facility] (MEDICAID REPLACEMENT - HMO) Leatha Madrigal [id number] Leatha Madrigal Notes Date Note Type Note Provider Name and Address Organization Details Recorded Time 10/29/2024 text/html 10/29/24:Leatha presents for medication management and follow-up on multiple health issues.She has been using an albuterol inhaler, last prescribed by Geraldine [facility] a few months ago, and requires a non-steroid inhaler due to intolerance to steroids. She uses Chantix 1 mg twice a day for smoking cessation and has concerns about insurance coverage for this medication. She has a strong desire to smoke, describing it as a financial decision to quit rather than for health reasons. She has been in contact with a smoking cessation program but found the advice unhelpful. She experiences significant gastrointestinal issues, including severe acid reflux that wakes her at night and causes vomiting if she drinks non-sparkling beverages. She consumes Tums 10-12 times daily for temporary relief and suspects stomach ulcers, with a history of long-standing acid issues. She is undergoing treatment for hemochromatosis, including weekly bloodletting and B12 injections. She has a history of iron overload and is monitored regularly by a supervisor of officials. She reports that her supervisor of officials suggested a workup for an autoimmune condition, and she is considering further evaluation for this. Severe allergies are managed with Benadryl four times a day for relief. She has been unable to undergo allergy testing due to scheduling issues with her previous provider and needs a new shoe patternmaker to manage her symptoms and facilitate testing. Her current medication regimen includes cyclobenzaprine 10 mg three times a day, atomoxetine 100 mg once a day, lorazepam 1 mg three times a day, Caplyta 42 mg once a day, trazodone 150 mg once a day, prazosin 8 mg once a day, clonidine 0.2 mg once a day, and diclofenac topical. She has discontinued diclofenac pills and is using Aleve 220 mg three times a day for pain management.- - - -10/12/24: Leatha presents with multiple mental health concerns and a request for specialist referrals. The patient experiences anxiety, depression, and reports of agoraphobia, which have significantly disrupted her life. She is under the care of a virtual psychiatrist in [place] and has an ACCS team through the Department of Mental Health. She has treatment-resistant depression and previously tried Spravato but faced insurance issues. She has a history of heart issues, reports that it was suspected to be a heart attack, and has been diagnosed with a minor arrhythmia and maybe some heart failure , which she attributes to anxiety. She has been cleared by a ranch cook for physical activity. She reports severe stomach pain and suspects stomach ulcers. She is unable to drink flat water without vomiting and relies on sparkling water for hydration. She is seeking a referral to a GI specialist for further evaluation. She has experienced new neurological symptoms, including brain fog, memory issues, and random stabbing pains in various parts of her body. She is asking for a referral to a neuropsychologist or neurosurgeon for further evaluation due to her history of fibromyalgia. She has a history of ovarian cysts, which she reports have previously ruptured, and is scheduled for a procedure to address this and to have an IUD placed. She has an SENIOR REACTOR OPERATOR managing this aspect of her care. She has a history of alcoholism and has been sober for nine years. She describes a challenging family history with alcoholism and mental illness. She has experienced homelessness and currently lives with chosen family members, Luis and Cynthia, who also have mental and physical health issues, who she feels very connected to. She also has an emotional support animal - her dog, Karen. JULIO C HADLEY, OCCUPATIONAL HEALTH TECHNICIAN-[address], [address], [facility] 10/29/2024 16:16:45 OBGyn Episode No OBEpisode recorded.
--- OUTSIDE RECORDS SUMMARY | 2024-10-30 18:17 | XMS_ITS | Data Portability ---
Author Organization [facility], , [facility] Address [address] [place] [address] Care Team Providers Care Digital Content Specialist Name Role Phone LOPEZ VIZCAINO [facility] Transition Teacher JULIO C HADLEY Primary Care Provider Assessment Encounter Date Assessment Date Assessment LastModified by Organization Details LastModified Time 10/12/2024 10/12/2024 Wellness Visit: Planned for preventive screenings and health maintenance. - Schedule wellness visit for March or April for annual physical and preventive screenings. Not available 10/12/2024 15:46:35 10/29/2024 10/29/2024 I have personally spent >50 minutes with patient, chart review and updating, coordinating care and implementing a care plan with this patient. Not available 10/29/2024 16:12:24 Plan of Treatment Reminders Order Date Submit Date Provider Last Modified By Organization Details Last Modified Time Details Appointments Welln ess Visit 30 2024 03:00P M BHASKAR LEGERP-BC Not available Not available Not available Lab hepat itis C virus Ab, serum 2024 025 [email or web address] [facility], [address], [place], [address], 10/29/2024 16:06:44 Referral healt h college sports coach ing refer ral 2024 025 [email or web address] [employer], [address] [facility], [place], [address], 10/29/2024 16:09:[address] immun ologi [address] refer ral 2024 025 [facility], [address] [facility], [place], [address], 10/29/2024 16:09:58 gastr astrid quintero ist refer ral 2024 025 [email or web address] [facility], [address] [place] [address] [address], [place], [address], 10/29/2024 16:09:58 Procedures None recor ded. Surgeries None recor ded. Imaging None recor ded. Medication Orders varen iclin e tartr ate 1 mg table t 2024 025 [id number], [address] [place], [address], 10/29/2024 16:46:05 albut mere sulfa te HFA 90 mcg/a ctuat ion aeros ol inhal er 2024 025 [id number], [address] [place], [address], 10/29/2024 16:50:25 omepr azole 20 mg capsu le,de layed relea se 2024 025 [id number], [address] [place], [address], 10/29/2024 16:49:43 Patient TargetsNo targets recorded. Patient InstructionsNo instructions recorded. Reason for Referral Health Coaching Referral for Tobacco user Referring Physician: Julio C Hadley [facility], Encounter Date: 10/29/2024 Gas Engine Repairer Referral for Indigestion Referring Physician: [facility], Encounter Date: 10/29/2024 Customer Engineer & Rehabilitation Specialist Ref erral for Seasonal allergy Referring Physician: Julio C Hadley [facility], Encounter Date: 10/29/2024 Results Created Date Observation Date Name Description Value Unit Range Abnormal Flag Note LastModifiedBy Organization Detail LastModifiedTime 10/13/1907/2307/23/2024 US, abdom en + pelvi s No observ ation record ed. [email or web address] Not Available 2024 16:22:07 Result Notes None recorded. Problems Name Problem SNOMED Code Status Onset Date Resolution Date Notes Provider Name and Address Organization Details Recorded Time Depressiv e disorder 49803994 Active [address], [address] , [facility] 5 14:34:20 Anxiety 89279834 Active [address], [address] , [facility] 14:34:30 Alcohol use disorder Active 2024 JULIO C HADLEY [address], [address] , [facility] 15:46:23 Abnormal cervical Papanicol aou smear 597045512 Active 2024 HPV pos at [facility] [address] RN [facility], [facility] 11:28:18 Hemochrom atosis 982238568 Active 2024 monitored by hematology ; labs [email or web address] with heme team LINDY LEGERAUDI [address] [place] [address], [address] , [facility] 5 16:08:27 Asthma 515941698 Active [address], [address] , [facility] 5 16:15:24 Problem Notes None recorded. Procedures Surgical History Date Name Laterality Status Provider Name and Address Organization Details Recorded Time Smoking cessation counseling completed Carmina Mckenna Jorge Alberto [facility] 10/29/2024 13:36:54 Asthma Control Test (12 + years old) completed Carmina Mckenna Jorge Alberto [facility] 10/29/2024 13:39:13 Imaging Results Imaging Date Name Status LastModified by Organiz ation Details LastModified Time 07/23/2024 US, abdomen + pelvis completed [email or web address] Information not available 10/12/2024 16:22:07 Procedure Notes None recorded. Medical Equipment None Reported. Allergies Allergen ID Allergen Name Allergen Category Reaction Reaction Severity Criticality Documentation Date Start Date Code Code System Note Provider Name and Address Organization Details Recorded Time 448733 Product containin g glucocort icoid (product) medicatio n other Not available Not available 10/12/20242017 57674 6006 SNOMED Savanna Melly [facility] 13:47:42 380269 zolpidem medicatio n Not available Not available Not available 10/12/20242018 37655 RxNorm Other react ions and sever ities : 'Ment al Statu s Viveros e'. Savanna Melly [facility] 13:47:42 399511 Medicinal product acting as adhesive (product) environme nt,medica tion rash Not available Not available 10/12/20242017 60288 2009 SNOMED Savanna Melly [facility] 5 13:47:42 285702 bupropion hydrochlo ride medicatio n Not available Not available Not available 10/12/20242017 44729 4 RxNorm Other react ions and sever ities : 'Ment al Statu s Viveros e'. Savanna Melly [facility] 13:47:42 Medications Name Sig Start Date Stop [...] azelastine 137 mcg (0.1 %) nasal spray [place] 2 {spray}s twice a day by nasal [...] active Not Available Not Available Not Avai lable tizanidine 4 mg capsule Take 4 mg [...] mass index (BMI) Body weight Heart rate Oxygen saturation Oxygen saturation in Arterial blood by Pulse oximetry Systolic blood pressure Diastolic blood pressure Provider Name and Address Organization Details Last Updated DateTime 175.26 cm 28.5 kg/m2 02352.3 3 g 113 /min 97 % 97 % 120 mm[Hg] 90 mm[Hg] Savanna Melly [facility] 14:06:36 Date Recorded Body height Body mass index (BMI) Body weight Heart rate Systolic blood pressure Diastolic blood pressure Provider Name and Address Organization Details Last Updated DateTime 5 175.26 cm 28.5 kg/m2 03702.7 3 g 92 /min 120 mm[Hg] 80 mm[Hg] LIDIA Rae [facility] 5 13:43:11 Social History None recorded. Functional Status None recorded. Mental Status None recorded. Family History Nothing Reported. Medical History No medical history recorded. Gynecological HistoryNo gynecological history recorded. Obstetrics History GPAL:G 0 P 0 0 0 0 Immunizations Vaccine Type Date Status Note Provider Nam e and Address Organization Details Recorded Time MMR 08/09/1995 completed Savanna Melly yuliet [facility] 10/12/2024 13:45:22 Td(adult) unspecified formulation 03/11/1999 [facility] 13:45:22 Hep B, unspecified formulation 12/26/1995 completed Savanna Melly [facility] 10/12/2024 13:45:22 Past Encounters Encounter ID Performer Location Encounter Start Date Encounter Closed Date Diagnosis/Indication Diagnosis SNOMED-CT Code Diagnosis ICD10 Code Diagnosis Note [id number] EDUAR LEGER, [facility], OFFICE [address] [place] [phone] 10/12/2024 13:42:09 10/12/2024 14:49:26 Anxiety 16747531 F41.9 Chronic anxiety impacting daily life, contributi ng to cardiac symptoms. Managed with medication , requires ongoing mental health support.- Schedule follow-up appointmen ts as needed for mental health support.- Coordinate with mental health team for ongoing management . 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 Spravato treatment interrupte d due to insurance issues, plans to restart with [employer] . [id number] EDUAR LEGER, [facility], OFFICE [address] [place] [address] 10/29/2024 13:32:09 10/29/2024 16:09:57 Screening for disorder 380274089 Z11.59 Immunization due 1009538 08 Z23 Tdap - not today, will do in future Screening mammography 24 882705 Z12.31 scheduled December, Nicotine dependence 5629 4008 [...] cessation. We discussed utilizing our smoking cessation college sports coach and online resources. Your personal goal: to maintain quitting Tobacco user 165604048 Z 72.0 As above. Indigestion 693975232 K3 0 Severe GERD with nocturnal acid reflux. Initiating PPI therapy for symptom control within 4-8 weeks.- Prescribe omeprazole once daily, two refills.- Refer to [facility] for further evaluation . Seasonal allergy 4946752 04 J30.2 ? allergies vs asthmaPati ent reporting severe, unmanageab le allergies - needing benadryl 4x/day Hemochromatosis 05498258 6 E83.119 Undergoing regular phlebotomy . Consulting [...] Continue daily folic acid supplement ation. Asthma 677236007 J45.90 9 Health Concerns Section Related Observation LastModified by Organization Detai ls LastModified Time None Recorded Concern Status LastModified by Organization Details LastModified Time None Recorded Advance Directives Directive None Recorded Payers Encounter Date Sequence Insurance Name Policy Number Policy Dorman Covered Member ID Dorman Member ID Guarantor Name 10/12/2024 1 [facility] - DOS ON OR AFTER 2022 - [facility] (MEDICAID REPLACEMENT - HMO) Leatha Madrigal [id number] Leatha Madrigal 10/29/2024 1 [facility] [facility] - DOS ON OR AFTER 2022 - [facility] (MEDICAID REPLACEMENT - HMO) Leatha Madrigal [id number] Leatha Madrigal Notes Date Note Type Note Provider Name and Address Organization Details Recorded Time 10/12/2024 text/html 10/12/24: Leatha presents with multiple mental health concerns and a request for specialist referrals. The patient experiences anxiety, depression, and reports of agoraphobia, which have significantly disrupted her life. She is under the care of a virtual psychiatrist in [place] and has an ACCS team through the [...] anxiety. She has been cleared by a director data analytics for physical activity. She reports severe stomach [...] have an IUD placed. She has an DIRECTOR OF PHYSICAL SECURITY managing this aspect of her care. She [...] - her dog, Karen. JULIO C HADLEY, [facility], [address], [facility] 10/12/2024 15:47:18 10/29/2024 text/html 10/29/24:Leatha presents for medication management and follow-up on multiple health issues.She has been using an albuterol inhaler, last prescribed by Geraldine Ha ([facility]) a few months ago, and requires a [...] overload and is monitored regularly by a label paster. She reports that her label paster suggested a workup for an autoimmune condition, and she is considering further evaluation for this. Severe allergies are managed with Benadryl four times a day for relief. She has been unable to undergo allergy testing due to scheduling issues with her previous provider and needs a new premium representative to manage her symptoms and facilitate testing. [...] the care of a virtual psychiatrist in [place] and has an ACCS team through the [...] anxiety. She has been cleared by a director data analytics for physical activity. She reports severe stomach [...] have an IUD placed. She has an DIRECTOR OF PHYSICAL SECURITY managing this aspect of her care. She has a history of alcoholism and has been sober for nine years. She describes a challenging family history with alcoholism and mental illness. She has experienced homelessness and currently lives with chosen family members, Carmen, who also have mental and physical health issues, who she feels very connected to. She also has an emotional support animal - her dog, Karen. JULIO C HADLEY, BIOSTATISTICS PROFESSOR-[address], [place], [address], [facility] 10/29/2024 16:16:45 OBGyn Episode No OBEpisode recorded.
--- OUTSIDE RECORDS SUMMARY | 2024-10-30 18:17 | XMS_ITS | Continuity of Care Document ---
Author Organization [facility] Address [address] [place] [address] Phone Care Team Providers Care Pipe Maker Name Role Phone ZProvider, Conversion Unavailable Unavailabl e Procedures Procedure Date X-RAY EXAM OF FOOT X-RAY EXAM OF HAND X-Ray Exam Sacroiliac Joints Advance Directives Directive Yes / No Effective Date File Name No Information Encounters Encounter Description Practice Location Reason(s) For Visit Diagnoses Date Provider Providers Copied on Encounter [facility], [address], [place], [place], [id number], tel:[phone] [facility] No Information ZProvider Conversion . . [facility], [address], [place], [place], [id number], tel:[phone] [facility] Spondylosis w/o myelopathy or radiculopathy, lumbar regionOther specified arthritis, multiple sitesTachycardia, unspecifiedDecrease d white blood cell count, unspecified ZProvider Conversion . . [facility], [address], [place], [place], [id number], tel:[phone] [facility] Anxiety disorder, unspecifiedPain in right hipOther specified [...] clinic in future if symptoms and signs oil changer time. Her white blood count and ANC are low. Will refer to Hematology for further evaluation. Patient was advised to bring a copy of her labs to her visit.Patient verbalized understanding and agreement with the plan. A copy of this report has been sent to the referring provider. Related to Other specified arthritis, multiple sites Advised minimizing NSAID use. Re lated to group home (current) use of non-steroidal non-inflam (NSAID) Reported [...]
== END 2024-10-30 15:24 | disposition home or self-care (01) ==
LOC: HO.BBR 15:23
PROVIDERS: Visit Provider Nurse Practitioner Family
DX: Z13.89 Encounter for screening for other disorder (principal)

== ENCOUNTER 2025-01-01 14:56 | Outpatient (AMB) | payer MEDICAID, SELFPAY ==
--- OUTSIDE RECORDS SUMMARY | 2017-03-09 07:57 | XMS_ITS | Continuity of Care Document ---
Author Organization [facility] Address [address] [place] [address] Phone Care Team Providers Care Administration Dean Name Role Phone ZProvider, Conversion Unavailable Unavailabl e Procedures Procedure Date X-RAY EXAM OF FOOT X-RAY EXAM OF HAND X-Ray Exam Sacroiliac Joints Advance Directives Directive Yes / No Effective Date File Name No Information Encounters Encounter Description Practice Location Reason(s) For Visit Diagnoses Date Provider Providers Copied on Encounter [facility], [address], [place], [place], [id number], tel:[phone] [facility] No Information Feb- ZProvider Conversion . . [facility], [address], [place], [place], [id number], tel:[phone] [facility] Tachycardia, unspecifiedOther specified arthritis, multiple sitesSpondylosis w/o myelopathy or radiculopathy, lumbar regionDecreased white blood cell count, unspecified Feb- ZProvider Conversion . . 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 . Family History Family Member Type Diagnosis Age At Onset Problem (finding) The patient re ports no changes except otherwise noted during the present visit Problem (finding) Diabetes Mellitus Type I Payers Payer name Insurance type Covered libertarian ID Abhishek preston(s) No Information Social History Type Description Quantity Date Captured Comments Alcohol Use Details Unknown Caffeine Use Details Unknown Tobacco Use Status No Information Smoking Status No Information Sex Female Chief Complaint And Reason For Visit No Information Reason For Referral Reason For Referral No Information History Of Present Illness Encounter Date Complaint History Of Prese nt Illness No Information Functional Status Date Functional Assessmen t No Information Instructions Date Instruction Additional Infor maria guadalupe Clinical evaluation does not support a rheumatic origin of her joint pain. Serologies were negative and inflammatory markers were normal. No synovitis on physical examination and Xrays were normal. Clinically, radiologically, and serologically with no evidence of chronic inflammatory arthritis. She has a history of scoliosis and lumbar DJD and her symptoms and signs will be best managed through pain management. She was not able to follow through with pain management referral at last visit. Will refer again. Return to clinic in future if symptoms and signs change management specialist time. Her white blood count and ANC are low. Will refer to Hematology for further evaluation. Patient was advised to bring a copy of her labs to her visit.Patient verbalized understanding and agreement with the plan. A copy of this report has been sent to the referring provider. Related to Other specified arthritis, multiple sites Will evaluate as above. Related to Pain in right hip Will refer to hematology. Relate d to Decreased white blood cell count, unspecified Advised minimizing NSAID use. Re lated to residential (current) use of non-steroidal non-inflam (NSAID) Heart rate was 116 a nd was elevated at last visit also. Patient reported situational anxiety. Noted to be slightly anxious on examination. No reported palpitations, chest pain, dizziness, or other new symptoms. Advise follow up with PCP for further evaluation. Related to Tachycardia, unspecified Will refer to pain m anagement.Educated patient on OA and conservative strategies like - weight loss, PT, exercise, local heat, local gels. Related to Spondylosis w/o myelopathy or radiculopathy, lumbar region Noted to be anxious on examination with heart rate 104. Patient reports situational anxiety. Advise follow up with PCP as needed. Related to Anxiety disorder, unspecified 31-year-old female w ith reported history of lumbar DJD and joint hypermobility and with recent increase in joint pain. Suspect her symptoms and signs are mechanical in origin with normal APRs and no synovitis on examination. Lupus and rheumatoid arthritis have already been ruled out. However, based on her age, reported intermittent hand swelling, symmetric symptoms, sicca, and fatigue, will evaluate further with labs and Xrays to rule out a rheumatic disease. Will follow up in 2 weeks.Patient verbalized understanding and agreement with the plan. A copy of this report has been sent to the referring provider. Related to Other specified arthritis, multiple sites Reported lumbar DJD on Xray and MRI. Not currently followed by pain management. Will refer. Related to Spondylosis w/o myelopathy or radiculopathy, lumbar region Assessments Type Assessment Date No Information Patient Care Teams Name Effective Dates (start - stop) Status Members No Information
--- NOTE | 2025-01-01 15:18 | A.OFFVIS_ITS ---
Vital Signs 01/01/25 15:19 Height 5 ft 9 in Weight 194 lb 0.108 oz BMI 28.6 BP 124/68 Blood Pressure Location Lt brachial Position Sitting Pulse 112 H Pulse Source Pulse Oximeter Intake Visit Reasons: pt on new med hr is high Allergies cat dander Allergy (Severe, Verified 11/07/24 13:52) Sneezing Seasonal Allergies Allergy (Severe, Verified 11/07/24 13:52) Sneezing Medication List - Last Reconciled 01/01/25 by Fletcher Pop NP atomoxetine 100 mg PO DAILY clonidine HCl 0.1 mg PO BEDTIME cyclobenzaprine 10 mg PO TID diphenhydramine HCl (Benadryl Allergy) 50 mg PO TID PRN esketamine (Spravato) 28 mg intranasal BID folic acid 1 mg PO DAILY lorazepam 1 mg PO TID PRN lumateperone (Caplyta) 42 mg PO DAILY prazosin 8 mg PO BEDTIME trazodone 150 mg PO BEDTIME PRN varenicline tartrate 1 mg PO BID HPI Comments Details: This is a 39-year-old female patient coming in for complaints of elevated heart rate. Patient was previously seen in the office for chest discomfort for which patient underwent a echocardiogram, and a CTA. Patient had then reported some palpitations for which patient underwent a Holter study that showed baseline sinus rhythm with sinus tachycardia 29% of the time. Today patient reports that she has been on a new medication for her depression Spravato and thought that she started having elevated heart rates since starting this medication and therefore needs clearance to continue on it. Patient is otherwise denying any exertional chest pain, shortness of breath, palpitations, dizziness, orthopnea, PND, leg edema, presyncope, or syncope. [facility] Medical History Hemochromatosis Major depression Agoraphobia PTSD (post-traumatic stress disorder) TMJ (dislocation of temporomandibular joint) Acute anxiety Asthma Surgical History H/O bilateral breast reduction surgery Family History Mother No problems noted. Father No problems noted. Social History Household Members: Family Alcohol intake: never Patient Tobacco Use Status: Former Tobacco user Substance Use Type: Marijuana service: No Current occupational status: unemployed and disabled Gender identity: Female Review of Systems Const Denies weakness ENT Denies dizziness Card Denies chest pain, Denies chest pain with activity, Denies syncope, Denies rapid heart rate, Denies pedal edema, Denies edema, Denies leg edema, Denies lightheadedness, Denies palpitations, Reports dyspnea, Denies dyspnea on exertion and Denies orthopnea Resp Denies cough, Reports dyspnea and Denies dyspnea on exertion GI Denies hematochezia and Denies change in stool character Musc Denies abnormal gait, Denies muscle cramps, Denies muscle weakness, Denies numbness, Denies radiating pain into limb and Denies tingling Neuro Denies abnormal gait, Denies dizziness, Denies syncope, Denies numbness, Denies tingling and Denies weakness Endo Denies palpitations Physical Exam Vital Signs: Last Vital Signs Pulse 112 H 01/01/25 15:19 BP 124/68 01/01/25 15:19 BMI result Body Mass Index 28.6 Const General: cooperative, healthy appearing, comfortable and no acute distress Orientation/consciousness: patient oriented x3 HEENT Head: Yes normal to inspection Neck Neck: Yes normal visual inspection, Yes trachea midline and Yes supple Chest Chest palpation & inspection: normal inspection of the chest Resp Effort & Inspection: normal respiratory effort Auscultation: clear to auscultation bilaterally, no crackles, no rales, no rhonchi and no wheezes Cardio Jugular venous distension: no JVD Palpation: normal PMI Rate: tachycardic Rhythm: regular rhythm Heart sounds: S1 normal heart sound present, S2 normal heart sound present, no click, no gallops, no murmurs and no rubs Peripheral pulses: Peripheral pulses 2+ throughout GI Inspection: Yes normal to inspection Palpation (GI): Soft to palpation Auscultation: normal bowel sounds Skin General skin exam: no rashes or lesions noted Neuro General: patient oriented x3 Extrem General: Yes normal to inspection, No no pedal edema and No calf tenderness Psych Appearance: grossly normal Mental Status: mental status grossly normal Speech and movement: Normal speech and movement present Assessment & Plan Assessment & Plan (1) Cardiomyopathy: Code(s): I42.9 - Cardiomyopathy, unspecified Category: Medical (2) Sinus tachycardia: Code(s): R00.0 - Tachycardia, unspecified Category: Medical Plan 07/17/2024-echo study showed mildly decreased LV systolic function with an ejec tion fraction between 45-50%, no wall motion abnormalities or valvular pathology. 07/26/2024-patient underwent a coronary CTA that showed no evidence of coronary artery disease. 08/09/2024-Holter study showed normal sinus rhythm with an average heart rate of 89 beats per minute, sinus tachycardia 29% of the time. Patient's sinus tachycardia could be multifactorial including her anxiety, stress, and medications. However, given that she has been sinus tachycardic last couple of visits and her Holter monitor showing sinus tachycardia 29% of the time even before starting the Spravato, less likely the med is causing this. Patient states that she has been resistant with all other medications for her depression and therefore would like to continue this. Patient's cardiomyopathy is still unclear however her sinus tachycardia could be an etiology and therefore we will start patient on a low-dose beta celine. We will also get a cardiac MRI to assess for any structural abnormalities. This c ase was discussed with Dr. John. Advised heart healthy diet, regular exercise, adequate hydration, and emphasized on stress reduction strategies. Follow-up after completing the cardiac MRI. In the interim, patient will call the office with any concerns or change in symptoms. This note was generated using voice recognition software. While every effort has been made to ensure accuracy and proper erosion control coordinator, there may be occasional errors that could affect the content or meaning of the described symptoms. Orders: Orders MR cardiac morph fnct w/wo con Today R93.1 - Abnormal findings on diagnostic imaging of heart and coronary circulation Medications: New metoprolol tartrate 12.5 mg (1/2 x 25 mg) PO BID 90 tabs 3RF Coding Level of Care Code Est Pt Level 4 (41221) Complex EM visit Add On G2211 Diagnoses Cardiomyopathy I42.9 Sinus tachycardia R00.0 Time Spent (min) 32 Comment Time spent in reviewing the chart, test results, assessment, counseling and documentation.
[2025-01-01 15:19] VITALS: BP 124/68; PULSE 112; BMI 28.6
== END 2025-01-01 16:05 | disposition home or self-care (01) ==
LOC: HO.HCS 14:57
DX: I42.9 Cardiomyopathy, unspecified (principal); R00.0 Tachycardia, unspecified
CPT/HCPCS: 99214; G2211

== ENCOUNTER → 2025-01-01 14:56 | Outpatient (BNVA) | payer MEDICAID, SELFPAY | DX: R00.0 Tachycardia, unspecified (principal); I42.9 Cardiomyopathy, unspecified; R93.1 Abnormal findings on diagnostic imaging of heart and coronary circulation | CPT/HCPCS: 99212 ==

== ENCOUNTER 2025-01-17 11:48 | Outpatient (AMB) | payer MEDICAID, SELFPAY ==
--- NOTE | 2025-01-17 12:00 | A.OFFVIS_ITS ---
Intake Visit Reasons: acute migraines Allergies cat dander Allergy (Severe, Verified 11/07/24 13:52) Sneezing Seasonal Allergies Allergy (Severe, Verified 11/07/24 13:52) Sneezing adhesive Allergy (Unknown, Verified 01/17/25 10:44) Rash bupropion Allergy (Unknown, Verified 01/17/25 10:44) Mental Status Change zolpidem Allergy (Unknown, Verified 01/17/25 10:44) Mental Status Change Corticosteriods Allergy (Unknown, Uncoded 01/17/25 10:44) Other Medication List - Last Reconciled 01/17/25 by Maia Ruiz MD atomoxetine 100 mg PO DAILY clonidine HCl 0.1 mg PO BEDTIME cyclobenzaprine 10 mg PO TID diclofenac sodium 1% 1 g topical QID PRN diphenhydramine HCl (Benadryl Allergy) 50 mg PO TID PRN esketamine (Spravato) 28 mg intranasal BID fluoride (sodium) 1.1% (Denta 5000 Plus) 1 appl dental DAILY folic acid 1 mg PO DAILY lorazepam 1 mg PO TID PRN lumateperone (Caplyta) 42 mg PO DAILY metoprolol tartrate 12.5 mg (1/2 x 25 mg) PO BID naproxen sodium (Aleve) 220 mg PO BID PRN omeprazole 20 mg PO DAILY prazosin 8 mg PO BEDTIME sumatriptan succinate 50 mg PO trazodone 150 mg PO BEDTIME PRN varenicline tartrate 1 mg PO BID HPI Comments Details: 39 years old right-handed woman MDD, insomnia, CHASE with agarophobia, complex PTSD, and ADHD is here with longstanding history of headaches since she was about 9 years old. More recently headaches have become more frequent and intense. There was no particular warning or aura. She was having headaches about 5 times a month or more. Typically headaches were on the left side but sometime there were both sides. Pain was usually behind the eye, pressure to throbbing type, igwniilx-fr-rencto to the point that she would go to a dark room and put ice on her head. Light and noise would make it worse. Nausea was usually associated an each headache could last for many hours to all day. There was no particular stroke-like symptom. She has tried multiple cpyj-qlj-jzworis medicines and sumatriptan without relief. Ubrelvy helped. Toradol shot also helped. [facility] Medical History (Updated 01/17/25 @ 12:15 by Maia Ruiz MD) Environmental allergies Migraine Alcohol use disorder Abnormal cervical Papanicolaou smear Hemochromatosis Major depression Agoraphobia PTSD (post-traumatic stress disorder) TMJ (dislocation of temporomandibular joint) Acute anxiety Asthma Surgical History H/O bilateral breast reduction surgery Family History Mother No problems noted. Father No problems noted. Social History Household Members: Family Alcohol intake: never Patient Tobacco Use Status: Former Tobacco user Substance Use Type: Marijuana service: No Current occupational status: unemployed and disabled Gender identity: Female Review of Systems Const Details: Constitutional:? Has difficulty getting to sleep, sleep walking, teeth grinding, abnormal sleep behavior, weight gain and rashes. HEENT:?No headache, vision changes, hearing loss, nasal congestion, sore throat. Cardiovascular:?No chest pain, palpitations, orthopnea, PND, or leg swelling. Respiratory:?No cough, shortness of breath, wheezing, or hemoptysis. Gastrointestinal:?No nausea, vomiting, abdominal pain, diarrhea, or constipation. Genitourinary:?No dysuria, frequency, incontinence, or hematuria. Musculoskeletal:?No joint pain, stiffness, weakness, or muscle aches. Neurological:? Complain of headache, blurred vision, numbness and tingling, memory problems, difficulty walking, dizziness and loss of balance. Psychiatric:? Has nervousness, depression and stress. Endocrine:? Heat and cold intolerance and excessive thirst Hematologic/Lymphatic:?No easy bruising, bleeding, or lymphadenopathy. Integumentary (Skin):?No rash, lesions, itching, or color changes. Allergic/Immunologic:?No seasonal allergies, hives, or recurrent infections. Physical Exam Neuro Other: Mental Status: Alert and oriented to person, place, and time. Normal attention. Normal spontaneous speech, fluency, and comprehension. No obvious issues with mood and memory. Affect is appropriate. Cranial Nerves: CN II: Visual anderson full to confrontation, visual acuity intact. CN III, IV, : Pupils equal, round, reactive to light and accommodation. Extraocular movements are normal. CN V: Facial sensation is normal. CN VII: Facial movements symmetrical. CN VIII: Hearing intact to bedside conversation is normal. CN IX, X: Palate elevates symmetrically. CN XI: Shoulder shrug and head turn symmetrical. CN XII: Tongue midline without atrophy or fasciculations. Motor: Bulk and tone normal in all extremities. No significant muscle weakness in arms and legs. No drift. Reflexes: Deep tendon reflexes 2+ and symmetric. Plantar response down-going bilaterally. Coordination: Exybbo-yx-ubxv and xubj-vl-jbjm testing normal. No dysmetria. Gait and Station: No obvious gait abnormality. No ataxia or instability. Sensory: Intact to light touch, pinprick, and vibration. Romberg is negative. Extrapyramidal: Full facial expressions and blinking. No rigidity. Movements are appropriate with no tremor or abnormality. Speech: Normal; no dysarthria or tremor. Assessment & Plan Assessment & Plan (1) Migraine without aura: Comment: Meds tried: Sumatriptan, OTC meds Code(s): G43.009 - Migraine without aura, not intractable, without status migrainosus Category: Medical Qualifiers: Status migrainosus presence: without status migrainosus Intractability: intractable Qualified Code(s): G43.019 - Migraine without aura, intractable, without status migrainosus Plan Impression: Chronic migraine without aura, intractable Recommendations: 1. Education about migraine 2. Try a preventive medicine like topiramate 25 mg at night. We discussed other preventive medicines in addition to this 1 that we could try 3. Try eletriptan 40 mg as needed. In this category also, we discussed other medicines including CGRP inhibitors, which might be a better choice for her because of her other medicines on board. Medications: New eletriptan 40 mg orally once a day as needed PRN; do not exceed 2 doses per 24 hrs 10 tabs 0RF migraine headache topiramate 25 mg PO DAILY 30 tabs 0RF Coding Level of Care Code New Pt Level 4 (24678) Diagnoses Intractable migraine without aura and without status migrainosus G43.019 Status migrainosus presence: without status migrainosus Intractability: intractable
== END 2025-01-17 12:27 | disposition home or self-care (01) ==
LOC: HO.HSM 11:49
PROVIDERS: Visit Provider Psychiatry & Neurology Neurology
DX: G43.019 Migraine without aura, intractable, without status migrainosus (principal)
CPT/HCPCS: 99204

== ENCOUNTER → 2025-01-17 11:48 | Outpatient (BNVA) | payer MEDICAID, SELFPAY | PROVIDERS: Visit Provider Psychiatry & Neurology Neurology | DX: G43.019 Migraine without aura, intractable, without status migrainosus (principal) | CPT/HCPCS: 99202 ==

== ENCOUNTER 2025-02-18 09:39 | Outpatient (REF) | payer MEDICAID, SELFPAY ==
[2025-02-19 20:24] LABS: Immunoglobulin A 195 mg/dL (47-310)
== END 2025-02-18 09:40 | disposition home or self-care (01) ==
LOC: HO.LAB 09:39
PROVIDERS: Absent Provider Internal Medicine; Visit Provider Psychiatry & Neurology Neurology
DX: R10.13 Epigastric pain (principal); G43.719 Chronic migraine without aura, intractable, without status migrainosus; R11.2 Nausea with vomiting, unspecified; K59.00 Constipation, unspecified; I42.9 Cardiomyopathy, unspecified; E83.119 Hemochromatosis, unspecified; Z01.84 Encounter for antibody response examination; Z79.899 Other long term (current) drug therapy
CPT/HCPCS: 36415; 82784; 86364; 99202; 99212

== ENCOUNTER 2025-02-18 09:39 | Outpatient (AMB) | payer MEDICAID, SELFPAY ==
--- NOTE | 2025-02-18 09:53 | A.OFFVIS_ITS ---
Intake Visit Reasons: 1M MIGRAINE Allergies cat dander Allergy (Severe, Verified 11/07/24 13:52) Sneezing Seasonal Allergies Allergy (Severe, Verified 11/07/24 13:52) Sneezing adhesive Allergy (Unknown, Verified 01/17/25 10:44) Rash bupropion Allergy (Unknown, Verified 01/17/25 10:44) Mental Status Change zolpidem Allergy (Unknown, Verified 01/17/25 10:44) Mental Status Change Corticosteriods Allergy (Unknown, Uncoded 01/17/25 10:44) Other HPI Comments Details: 39 years old right-handed woman MDD, insomnia, CHASE with agarophobia, complex PTSD, and ADHD is here with longstanding history of migraine type of headaches. Topiramate did not make any difference. She had ovarian surgery a few weeks ago. [facility] Medical History (Updated 02/18/25 @ 10:02 by Maia Ruiz MD) Environmental allergies Migraine Alcohol use disorder Abnormal cervical Papanicolaou smear Hemochromatosis Major depression Agoraphobia PTSD (post-traumatic stress disorder) TMJ (dislocation of temporomandibular joint) Acute anxiety Asthma Surgical History H/O bilateral breast reduction surgery Family History Mother No problems noted. Father No problems noted. Social History Household Members: Family Alcohol intake: never Patient Tobacco Use Status: Former Tobacco user Substance Use Type: Marijuana service: No Current occupational status: unemployed and disabled Gender identity: Female Review of Systems Const Details: Constitutional:?No fever, chills, fatigue, weight loss, or night sweats. HEENT:?No vision changes, hearing loss, nasal congestion, sore throat. Neurological:?No dizziness, syncope, seizures, numbness, tingling, weakness, tremors, memory loss. Psychiatric:?No anxiety, depression, mood swings, sleep disturbance, or hallucinations. Endocrine:?No heat/cold intolerance, polydipsia, polyuria, or hair/skin changes. Hematologic/Lymphatic:?No easy bruising, bleeding, or lymphadenopathy. Integumentary (Skin):?No rash, lesions, itching, or color changes. ? Physical Exam Neuro Other: Mental Status: Alert and oriented to person, place, and time. Normal attention. Normal spontaneous speech, fluency, and comprehension. No obvious issues with mood and memory. Affect is appropriate. Cranial Nerves: CN II: Visual anderson full to confrontation, visual acuity intact. CN III, IV, : Pupils equal, round, reactive to light and accommodation. Extraocular movements are normal. CN V: Facial sensation is normal. CN VII: Facial movements symmetrical. CN VIII: Hearing intact to bedside conversation is normal. CN IX, X: Palate elevates symmetrically. CN XI: Shoulder shrug and head turn symmetrical. CN XII: Tongue midline without atrophy or fasciculations. Extrapyramidal: Full facial expressions and blinking. No rigidity. Movements are appropriate with no tremor or abnormality. Speech: Normal; no dysarthria or tremor. Assessment & Plan Assessment & Plan (1) Migraine without aura: Comment: Meds tried: Sumatriptan, OTC meds, topiramate, depakote Code(s): G43.009 - Migraine without aura, not intractable, without status migrainosus Category: Medical Qualifiers: Status migrainosus presence: without status migrainosus Intractability: intractable Qualified Code(s): G43.019 - Migraine without aura, intractable, without status migrainosus Plan Impression: Chronic intractable migraine without aura Medications: 1. Discontinue topiramate 2. Try Depakote 250 mg 1 at night daily for migraine prevention 3. Rizatriptan 10 mg as needed Medications: New divalproex 250 mg PO ONCE 60 tabs 1RF rizatriptan 10 mg orally one a day as needed PRN; do not exceed 3 doses per 24 hrs 7 tabs 0RF migraine headache Discontinued topiramate Discontinued Reason: Doctor's Order 25 mg PO DAILY 30 tabs 0RF Coding Level of Care Code Est Pt Level 4 (41941) Diagnoses Intractable migraine without aura and without status migrainosus G43.019 Status migrainosus presence: without status migrainosus Intractability: intractable
--- OUTSIDE RECORDS SUMMARY | 2025-02-18 10:09 | XMS_ITS | Encounter Summary ---
Author Organization [facility] Address [address] [place] [address] Phone Care Team Providers Care Veneer Taping Machine Offbearer Name Role Phone Adilene Sr MD Unavailable [phone] Sandy Hadley NP Primary Care Provider [phone] Encounter Details Date Type Department Care Team (Late st Contact Info) Description 12/08/2024 Ancillary Orders [facility], X-Ray - [address] [address] Olga Hardwick PA [address] [place] [id number] [email or web address] Other spondylosis with radiculopathy, cervical region (Primary Dx) Social History Tobacco Use Types Packs/Day Years Used Date Smoking Tobacco: Former Cigarettes Smokeless Tobacco: Never Comments:Patient has quit sm oking Alcohol Use Standard Drinks/Week Comments No 0 (1 standard drink = 0.6 oz pur e alcohol) past history of alcohol abuse Education Answer Date Recorded Are you interested in more education? Not on randy e 11/13/2022 Are you concerned about learning? Not on file 11/13/2022 No 11/13/2022 No 11/13/2022 Digital Access Answer Date Recorded No 12/05/2022 No 12/05/2022 Reliable internet access at home? Not on file 12/05/2022 Device with a working camera? Not on file Comments No Sex and Gender Information Value Date Recorded Sex Assigned at Not on file Legal Sex Female 5:39 PM EST Gender Identity Not on file Sexual Orientation Not on file documented as of this encounter Plan of Treatment Upcoming Encounters Date Type Department Care Team (Late st Contact Info) Description 02/20/2025 2:30 PM EDT Office Visit [facility] [address] [place] [address] [place] [address] Keiko Gonsalves MD [address] [place] [address], [address] [place] [address] documented as of this encounter Results * XR CERVICAL SPINE 4-5 VIEWS (12/08/2024 10:45 AM EDT) Anatomical Region Laterality Modality C-spine Computed Radiogr aphy 12/09/2024 8:27 PM EDT Impressions 12/09/2024 8:30 PM EDT Mild degenerative changes noting mild osseous foraminal narrowing on the right at C5-C6. Narrative 12/09/2024 8:30 PM EDT XR CERVICAL SPINE 4-5 VIEWS Referring clinician's provided indication for this examination in Epic: Pain COMPARISON: None FINDINGS: No prevertebral soft tissue swelling. Cervical alignment is within normal limits. Vertebral body and intervertebral disc heights are maintained. No displaced fracture. Very mild degenerative endplate spurring. Mild degenerative facet arthropathy. Mild osseous foraminal narrowing on the right at C5-C6. No osseous foraminal encroachment on the left. Procedure Note Hunter Ignacio MD - 12/09/2024 XR CERVICAL SPINE 4-5 VIEWS Referring clinician's provided indication for this examination in Epic:Pain COMPARISON: None FINDINGS: No prevertebral soft tissue swelling. Cervical alignment is within normallimits. Vertebral body and intervertebral disc heights are maintained. Nodisplaced fracture. Very mild degenerative endplate spurring. Milddegenerative facet arthropathy. Mild osseous foraminal narrowing on theright at C5-C6. No osseous foraminal encroachment on the left. IMPRESSION: Mild degenerative changes noting mild osseous foraminal narrowing on theright at C5-C6. Olga TODD IMG XR SPINE Final Result documented in this encounter Visit Diagnoses Diagnosis Other spondylosis with radiculopathy, cervical region- Primary Other spondylosis with radiculopathy, cervical region documented in this encounter Care Teams Veneer Taping Machine Offbearer Relationship Specialty Start Date End Date Sandy Hadley NP [address] [place] [id number] PCP - General 10/30/24 Adilene Sr MD [address] [place] [id number] [email or web address] Referring Physician Internal Medicine 08/01/17 documented as of this encounter Additional Source Comments The information contained in this document represents components of the legal health record. It is not the complete legal health record.[facility]
== END 2025-02-18 10:08 | disposition home or self-care (01) ==
LOC: HO.HSM 09:40
PROVIDERS: Visit Provider Psychiatry & Neurology Neurology
DX: G43.019 Migraine without aura, intractable, without status migrainosus (principal)
CPT/HCPCS: 99214

== ENCOUNTER 2025-02-18 10:39 | Outpatient (AMB) | payer MEDICAID, SELFPAY ==
--- NOTE | 2025-02-18 10:42 | MHC.OFFVIS ---
Vital Signs 02/18/25 10:44 Height 5 ft 9 in Weight 194 lb 0.108 oz BMI 28.6 BP 80/58 L Blood Pressure Location Lt radial Position Sitting Pulse 82 Intake Visit Reasons: Dyspepsia Intake Note: Leatha presents in the office as a new payient for dyspepsia. CC: She state she has constipation, acid reflux, nausea, cramping in the abdomen. Sober for 9.5 years and recovering alcoholic. She could not drink flat beverages because her stomach acid would come up and she would vomit - this never went away. she states that water even effects her - she will throw up. She states that it started when she was drinking and it never went away. Pest Locator Required: No Allergies cat dander Allergy (Severe, Verified 02/18/25 10:57) Sneezing Seasonal Allergies Allergy (Severe, Verified 02/18/25 10:57) Sneezing adhesive Allergy (Unknown, Verified 02/18/25 10:57) Rash bupropion Allergy (Unknown, Verified 02/18/25 10:57) Mental Status Change zolpidem Allergy (Unknown, Verified 02/18/25 10:57) Mental Status Change Corticosteriods Allergy (Unknown, Uncoded 02/18/25 10:57) Other HPI Comments Details: 39 y.o F with pmh of etOH use disorder, migraines, hx of ovarian cysts, hemochromatosis who is here to establish care. Reports almost 10-15 years ago had severe reflux which she was managing herself. Now that pt is sober, has been seeking to re-establish care. Has sx daily. Was started on omeprazole by PCP > 3 months which has helped but not completely. Notices this with exclusively with fluids. No dysphagia. Mother with hx of stomach ulcers. No fam hx of gastric ca that she is aware of. Additionally has constipation and abd cramping assoc with this. Pt also quite stressed about imminent housing insecurity. For hemochromatosis managed by hematology at [facility]. Undergoes therapeutic phlebotomy, this has been reduced in frequency due to ferritin < 100. Initial ferritin was almost 1000. This was in the absence of etOH use. [facility] Medical History Environmental allergies Migraine Alcohol use disorder Abnormal cervical Papanicolaou smear Hemochromatosis Major depression Agoraphobia PTSD (post-traumatic stress disorder) TMJ (dislocation of temporomandibular joint) Acute anxiety Asthma Surgical History H/O bilateral breast reduction surgery Family History Mother No problems noted. Father No problems noted. Social History Household Members: Family Alcohol intake: never Patient Tobacco Use Status: Former Tobacco user Substance Use Type: Marijuana service: No Current occupational status: unemployed and disabled Gender identity: Female Review of Systems Const All systems reviewed & are unremarkable except as noted in HPI and below Physical Exam Exam Exam: No apparent distress Nonicteric Abdomen soft, nondistended Alert and oriented x3, normal gait Vital Signs: Last Vital Signs Pulse 82 02/18/25 10:44 BP 80/58 L 02/18/25 10:44 BMI result Body Mass Index 28.6 Assessment & Plan Assessment & Plan (1) Nausea & vomiting: Code(s): R11.2 - Nausea with vomiting, unspecified Category: Medical (2) Regurgitation of food: Code(s): R11.10 - Vomiting, unspecified Category: Medical (3) Cardiomyopathy: Code(s): I42.9 - Cardiomyopathy, unspecified Category: Medical (4) Hemochromatosis: Code(s): E83.119 - Hemochromatosis, unspecified Category: Medical Plan DDx for regurgitation includes GERD, NERD, EoE, food intolerance, celiac etc. No dysphagia or other red flags at this time to suspect underlying malignant process. Plan: - BArium swallow - Labs as below - EGD to be booked - Cont omeprazole in the meantime Pt also with known hemochromatosis. Normal ferritin and LFTs on most recent labs. Will check US abd to determine if needs liver bx. Follow up after egd Orders: Orders FL barium swallow Today R11.10 - Vomiting, unspecified Transglutaminase IgA Today R11.2 - Nausea with vomiting, unspecified Immunoglobulin A Today R11.2 - Nausea with vomiting, unspecified US abdomen complete Today R11.2 - Nausea with vomiting, unspecified Coding Level of Care Code New Pt Level 4 (88790) Complex EM visit Add On G2211 Diagnoses Nausea & vomiting R11.2 Regurgitation of food R11.10 Cardiomyopathy I42.9 Hemochromatosis E83.119
[2025-02-18 10:44] VITALS: BP 80/58; PULSE 82; BMI 28.6
== END 2025-02-18 13:59 | disposition home or self-care (01) ==
LOC: HO.HGI 10:40
PROVIDERS: Visit Provider Internal Medicine
DX: R11.2 Nausea with vomiting, unspecified (principal); R11.10 Vomiting, unspecified; I42.9 Cardiomyopathy, unspecified; E83.119 Hemochromatosis, unspecified
CPT/HCPCS: 99204; G2211